=== PATIENT | male | born 1970 | race Caucasian/White ===

== ENCOUNTER 2017-08-24 20:26 | Inpatient (IN) | payer MEDICAID, OTHER, SELFPAY ==
[2017-08-24] MEDS: methylPREDNISolone INJ 125 MG/2 ML VIAL (J2930) IV (21:19)
[2017-08-24 21:23] LABS: BASO # 0.1 10^3/uL (0.0-0.2); BASO % 0.8 % (0.0-1.0); EOS # 0.2 10^3/uL (0.0-0.50); EOS % 1.3 % (0.0-3.0); HEMATOCRIT 60.2 % (42.0-52.0); HEMOGLOBIN 19.4 g/dl (13.5-17.5); IMMATURE GRANULOCYTE % 0.3 % (0-3.0); LYMPH % 22.4 % (24.0-44.0); MEAN CORPUSCULAR HEMOGLOBIN 30.4 pg (27.0-33.0); MEAN CORPUSCULAR HGB CONC 32.2 g/dl (32.0-36.5); MEAN CORPUSCULAR VOLUME 94.4 fl (80.0-96.0); MONO # 1.1 10^3/uL (0.0-0.8); MONO % 7.9 % (0.0-5.0); NEUTROPHILS # 8.9 10^3/uL (1.8-7.7); NEUTROPHILS % 67.3 % (36.0-66.0); PLATELET COUNT, AUTOMATED 247 10^3/uL (150-450); RED BLOOD COUNT 6.38 10^6/uL (4.30-6.10); RED CELL DISTRIBUTION WIDTH 15.6 % (11.5-14.5); WHITE BLOOD COUNT 13.3 10^3/uL (4.0-10.0)
[2017-08-24 21:26] LABS: SUSPECT SAMPLE POS FLAG
[2017-08-24] MEDS: IPRATROPIUM 0.5MG/ALBUTEROL 2.5MG INH SOL UD 3ML (DUONEB)(J7620) NEB ×3 (21:34→21:35)
[2017-08-24 21:49] LABS: ANION GAP 5 MEQ/L (8-16); BLOOD UREA NITROGEN 14 MG/DL (7-18); CALCIUM LEVEL 8.5 MG/DL (8.5-10.1); CARBON DIOXIDE LEVEL 32 MEQ/L (21-32); CHLORIDE LEVEL 99 MEQ/L (98-107); CPK CREATINE PHOSPHOKINASE 87 U/L (39-308); CREATININE FOR GFR 1.14 MG/DL (0.70-1.30); GLOMERULAR FILTRATION RATE > 60.0 (>60); GLUCOSE, FASTING 168 MG/DL (70-100); SODIUM LEVEL 136 MEQ/L (136-145); TROPONIN I 0.02 NG/ML (< 0.10)
[2017-08-24 21:54] LABS: ABG BASE EXCESS 2.2 (-2.0-2.0); ABG HCO3 26.8 MEQ/L (22.0-26.0); ABG O2 SATURATION 96.2 % (95.0-99.0); ABG PARTIAL PRESSURE CO2 41.3 mmHg (35.0-45.0); ABG STANDARD HCO3 26.4 MEQ/L (22.0-26.0); ABG TOTAL CO2 28.1 MEQ/L (22.0-29.0)
[2017-08-24 21:55] LABS: CK-MB VALUE MASS 3.6 NG/ML (<3.6); MB/CK RELATIVE INDEX 4.13 (< OR =4)
[2017-08-24 21:56] LABS: POTASSIUM SERUM 5.2 MEQ/L (3.5-5.1)
[2017-08-24 21:58] LABS: LACTIC ACID SEPSIS PROTOCOL 2.1 MMOL/L (0.4-2.0)
[2017-08-24] MEDS: ALBUTEROL SULFATE 2.5 MG/0.5 ML INH NEB SOLN NEB (22:46)
[2017-08-24] MEDS ORDERED: BISACODYL 5 MG TAB PO (23:30)
[2017-08-24] MEDS ORDERED: ONDANSETRON 4MG/2ML VIAL (J2405) IV (23:30)
[2017-08-24] MEDS ORDERED: ACETAMINOPHEN TAB 650MG DOSE (2X325MG) PO (23:30)
[2017-08-24] MEDS ORDERED: ALBUTEROL SULFATE 2.5 MG/0.5 ML INH NEB SOLN NEB (23:30)
[2017-08-25] MEDS: IPRATROPIUM 0.5MG/ALBUTEROL 2.5MG INH SOL UD 3ML (DUONEB)(J7620) NEB ×5 (02:00→20:00)
[2017-08-25 02:30] LABS: FREE T4 1.32 NG/DL (0.76-1.46)
[2017-08-25] MEDS: SYMBICORT 80/4.5MCG INHALER 6GM INH ×2 (08:01→19:43)
[2017-08-25] MEDS ORDERED: LOSARTAN 50 MG TAB PO (09:00)
[2017-08-25] MEDS: predniSONE 20 MG TAB PO (09:17)
[2017-08-25] MEDS: AZITHROMYCIN 250 MG TAB PO (09:17)
[2017-08-25] MEDS: METOPROLOL TART 50 MG TAB PO (09:17)
[2017-08-25] MEDS: SENOKOT S TAB PO ×2 (09:17→20:51)
[2017-08-25] MEDS: ENOXAPARIN 40 MG/0.4 ML SYRINGE (J1650) SC (09:18)
[2017-08-25] MEDS ORDERED: IPRATROPIUM 0.5MG/ALBUTEROL 2.5MG INH SOL UD 3ML (DUONEB)(J7620) NEB (10:15)
[2017-08-25] MEDS: methylPREDNISolone INJ 125 MG/2 ML VIAL (J2930) IV ×2 (12:17→17:20)
[2017-08-26] MEDS: IPRATROPIUM 0.5MG/ALBUTEROL 2.5MG INH SOL UD 3ML (DUONEB)(J7620) NEB ×7 (00:01→23:52)
[2017-08-26] MEDS: methylPREDNISolone INJ 125 MG/2 ML VIAL (J2930) IV ×5 (00:33→23:30)
[2017-08-26 06:06] LABS: HEMATOCRIT 53.7 % (42.0-52.0); MEAN CORPUSCULAR HGB CONC 31.1 g/dl (32.0-36.5); MEAN CORPUSCULAR VOLUME 96.6 fl (80.0-96.0); PLATELET COUNT, AUTOMATED 190 10^3/uL (150-450); RED BLOOD COUNT 5.56 10^6/uL (4.30-6.10); RED CELL DISTRIBUTION WIDTH 14.8 % (11.5-14.5); WHITE BLOOD COUNT 8.5 10^3/uL (4.0-10.0)
[2017-08-26 06:13] LABS: HEMOGLOBIN 16.7 g/dl (13.5-17.5)
[2017-08-26 06:24] LABS: ANION GAP 3 MEQ/L (8-16); BLOOD UREA NITROGEN 18 MG/DL (7-18); CALCIUM LEVEL 8.8 MG/DL (8.5-10.1); CARBON DIOXIDE LEVEL 36 MEQ/L (21-32); CHLORIDE LEVEL 102 MEQ/L (98-107); CREATININE FOR GFR 1.03 MG/DL (0.70-1.30); GLOMERULAR FILTRATION RATE > 60.0 (>60); GLUCOSE, FASTING 146 MG/DL (70-100); SODIUM LEVEL 141 MEQ/L (136-145)
[2017-08-26] MEDS: SYMBICORT 80/4.5MCG INHALER 6GM INH ×2 (07:47→20:09)
[2017-08-26] MEDS: SENOKOT S TAB PO ×2 (08:13→20:00)
[2017-08-26] MEDS: AZITHROMYCIN 250 MG TAB PO (08:13)
[2017-08-26] MEDS: ENOXAPARIN 40 MG/0.4 ML SYRINGE (J1650) SC (08:13)
[2017-08-26] MEDS: METOPROLOL TART 50 MG TAB PO (08:14)
[2017-08-26] MEDS: MAALOX 30 ML SUSP *UDC PO (21:34)
[2017-08-27] MEDS: IPRATROPIUM 0.5MG/ALBUTEROL 2.5MG INH SOL UD 3ML (DUONEB)(J7620) NEB ×5 (03:27→20:00)
[2017-08-27] MEDS: methylPREDNISolone INJ 125 MG/2 ML VIAL (J2930) IV (05:34)
[2017-08-27 05:58] LABS: HEMOGLOBIN 15.9 g/dl (13.5-17.5); MEAN CORPUSCULAR HEMOGLOBIN 30.3 pg (27.0-33.0); MEAN CORPUSCULAR HGB CONC 31.2 g/dl (32.0-36.5); MEAN CORPUSCULAR VOLUME 97.3 fl (80.0-96.0); PLATELET COUNT, AUTOMATED 178 10^3/uL (150-450); RED BLOOD COUNT 5.24 10^6/uL (4.30-6.10); RED CELL DISTRIBUTION WIDTH 14.6 % (11.5-14.5); WHITE BLOOD COUNT 11.1 10^3/uL (4.0-10.0)
[2017-08-27 06:17] LABS: ANION GAP 5 MEQ/L (8-16); BLOOD UREA NITROGEN 24 MG/DL (7-18); CALCIUM LEVEL 8.6 MG/DL (8.5-10.1); CARBON DIOXIDE LEVEL 35 MEQ/L (21-32); CHLORIDE LEVEL 105 MEQ/L (98-107); CREATININE FOR GFR 0.81 MG/DL (0.70-1.30); GLOMERULAR FILTRATION RATE > 60.0 (>60); GLUCOSE, FASTING 126 MG/DL (70-100); POTASSIUM SERUM 4.6 MEQ/L (3.5-5.1); SODIUM LEVEL 145 MEQ/L (136-145)
[2017-08-27] MEDS: AZITHROMYCIN 250 MG TAB PO (08:29)
[2017-08-27] MEDS: predniSONE 20 MG TAB PO (08:29)
[2017-08-27] MEDS: ENOXAPARIN 40 MG/0.4 ML SYRINGE (J1650) SC (08:30)
[2017-08-27] MEDS: METOPROLOL TART 50 MG TAB PO (08:30)
[2017-08-27] MEDS: SENOKOT S TAB PO ×2 (08:30→22:55)
[2017-08-27] MEDS: SYMBICORT 80/4.5MCG INHALER 6GM INH ×2 (08:44→20:09)
[2017-08-27] MEDS: MAALOX 30 ML SUSP *UDC PO (22:55)
[2017-08-28] MEDS: IPRATROPIUM 0.5MG/ALBUTEROL 2.5MG INH SOL UD 3ML (DUONEB)(J7620) NEB ×4 (03:50→20:00)
[2017-08-28 06:48] LABS: HEMATOCRIT 50.4 % (42.0-52.0); HEMOGLOBIN 15.2 g/dl (13.5-17.5); MEAN CORPUSCULAR HEMOGLOBIN 29.6 pg (27.0-33.0); MEAN CORPUSCULAR HGB CONC 30.2 g/dl (32.0-36.5); MEAN CORPUSCULAR VOLUME 98.1 fl (80.0-96.0); PLATELET COUNT, AUTOMATED 154 10^3/uL (150-450); RED BLOOD COUNT 5.14 10^6/uL (4.30-6.10); RED CELL DISTRIBUTION WIDTH 14.3 % (11.5-14.5); WHITE BLOOD COUNT 10.8 10^3/uL (4.0-10.0)
[2017-08-28 07:04] LABS: ANION GAP 1 MEQ/L (8-16); BLOOD UREA NITROGEN 23 MG/DL (7-18); CALCIUM LEVEL 8.3 MG/DL (8.5-10.1); CARBON DIOXIDE LEVEL 36 MEQ/L (21-32); CHLORIDE LEVEL 103 MEQ/L (98-107); CREATININE FOR GFR 0.74 MG/DL (0.70-1.30); GLOMERULAR FILTRATION RATE > 60.0 (>60); GLUCOSE, FASTING 85 MG/DL (70-100); POTASSIUM SERUM 4.6 MEQ/L (3.5-5.1); SODIUM LEVEL 140 MEQ/L (136-145)
[2017-08-28] MEDS: AZITHROMYCIN 250 MG TAB PO (08:01)
[2017-08-28] MEDS: predniSONE 20 MG TAB PO (08:01)
[2017-08-28] MEDS: METOPROLOL TART 50 MG TAB PO (08:02)
[2017-08-28] MEDS: SENOKOT S TAB PO ×2 (08:02→21:10)
[2017-08-28] MEDS: ENOXAPARIN 40 MG/0.4 ML SYRINGE (J1650) SC (08:03)
[2017-08-28] MEDS: SYMBICORT 80/4.5MCG INHALER 6GM INH ×2 (09:12→20:26)
[2017-08-28] MEDS: MAALOX 30 ML SUSP *UDC PO (21:11)
[2017-08-29] MEDS: IPRATROPIUM 0.5MG/ALBUTEROL 2.5MG INH SOL UD 3ML (DUONEB)(J7620) NEB ×2 (02:35→07:53)
[2017-08-29 07:49] LABS: HEMATOCRIT 52.7 % (42.0-52.0); HEMOGLOBIN 16.1 g/dl (13.5-17.5); MEAN CORPUSCULAR HEMOGLOBIN 30.2 pg (27.0-33.0); MEAN CORPUSCULAR HGB CONC 30.6 g/dl (32.0-36.5); MEAN CORPUSCULAR VOLUME 98.9 fl (80.0-96.0); PLATELET COUNT, AUTOMATED 148 10^3/uL (150-450); RED BLOOD COUNT 5.33 10^6/uL (4.30-6.10); RED CELL DISTRIBUTION WIDTH 14.3 % (11.5-14.5); WHITE BLOOD COUNT 10.1 10^3/uL (4.0-10.0)
[2017-08-29] MEDS: SYMBICORT 80/4.5MCG INHALER 6GM INH ×2 (07:52→20:54)
[2017-08-29 08:21] LABS: ANION GAP 0 MEQ/L (8-16); BLOOD UREA NITROGEN 17 MG/DL (7-18); CALCIUM LEVEL 8.2 MG/DL (8.5-10.1); CARBON DIOXIDE LEVEL 37 MEQ/L (21-32); CHLORIDE LEVEL 101 MEQ/L (98-107); CREATININE FOR GFR 0.61 MG/DL (0.70-1.30); GLOMERULAR FILTRATION RATE > 60.0 (>60); GLUCOSE, FASTING 86 MG/DL (70-100); POTASSIUM SERUM 4.7 MEQ/L (3.5-5.1); SODIUM LEVEL 138 MEQ/L (136-145)
[2017-08-29] MEDS: METOPROLOL TART 50 MG TAB PO (09:09)
[2017-08-29] MEDS: predniSONE 50 MG TAB PO (09:09)
[2017-08-29] MEDS: SENOKOT S TAB PO ×2 (09:09→21:24)
[2017-08-29] MEDS: ENOXAPARIN 40 MG/0.4 ML SYRINGE (J1650) SC (09:09)
[2017-08-29] MEDS ORDERED: IPRATROPIUM 0.5MG/ALBUTEROL 2.5MG INH SOL UD 3ML (DUONEB)(J7620) NEB (11:30)
[2017-08-29] MEDS: TIOTROPIUM INHALER/CAPSULE (SPIRIVA) INH (11:34)
[2017-08-30 06:55] LABS: HEMATOCRIT 52.2 % (42.0-52.0); HEMOGLOBIN 16.3 g/dl (13.5-17.5); MEAN CORPUSCULAR HEMOGLOBIN 30.4 pg (27.0-33.0); MEAN CORPUSCULAR HGB CONC 31.2 g/dl (32.0-36.5); MEAN CORPUSCULAR VOLUME 97.2 fl (80.0-96.0); PLATELET COUNT, AUTOMATED 145 10^3/uL (150-450); RED BLOOD COUNT 5.37 10^6/uL (4.30-6.10); RED CELL DISTRIBUTION WIDTH 13.8 % (11.5-14.5); WHITE BLOOD COUNT 9.6 10^3/uL (4.0-10.0)
[2017-08-30 07:12] LABS: ANION GAP 4 MEQ/L (8-16); BLOOD UREA NITROGEN 20 MG/DL (7-18); CALCIUM LEVEL 8.4 MG/DL (8.5-10.1); CARBON DIOXIDE LEVEL 35 MEQ/L (21-32); CHLORIDE LEVEL 100 MEQ/L (98-107); CREATININE FOR GFR 0.75 MG/DL (0.70-1.30); GLOMERULAR FILTRATION RATE > 60.0 (>60); GLUCOSE, FASTING 104 MG/DL (70-100); POTASSIUM SERUM 4.2 MEQ/L (3.5-5.1); SODIUM LEVEL 139 MEQ/L (136-145)
[2017-08-30] MEDS: SYMBICORT 80/4.5MCG INHALER 6GM INH ×2 (07:49→20:35)
[2017-08-30] MEDS: TIOTROPIUM INHALER/CAPSULE (SPIRIVA) INH (07:49)
[2017-08-30] MEDS: ENOXAPARIN 40 MG/0.4 ML SYRINGE (J1650) SC (09:03)
[2017-08-30] MEDS: predniSONE 20 MG TAB PO (09:04)
[2017-08-30] MEDS: SENOKOT S TAB PO ×2 (09:04→20:30)
[2017-08-30] MEDS: METOPROLOL TART 50 MG TAB PO (09:04)
[2017-08-31 08:01] LABS: HEMATOCRIT 51.8 % (42.0-52.0); HEMOGLOBIN 16.6 g/dl (13.5-17.5); MEAN CORPUSCULAR HEMOGLOBIN 30.6 pg (27.0-33.0); MEAN CORPUSCULAR VOLUME 95.4 fl (80.0-96.0); PLATELET COUNT, AUTOMATED 164 10^3/uL (150-450); RED BLOOD COUNT 5.43 10^6/uL (4.30-6.10); RED CELL DISTRIBUTION WIDTH 13.8 % (11.5-14.5); WHITE BLOOD COUNT 9.8 10^3/uL (4.0-10.0)
[2017-08-31 08:27] LABS: ANION GAP 4 MEQ/L (8-16); BLOOD UREA NITROGEN 17 MG/DL (7-18); CALCIUM LEVEL 8.5 MG/DL (8.5-10.1); CARBON DIOXIDE LEVEL 34 MEQ/L (21-32); CHLORIDE LEVEL 102 MEQ/L (98-107); CREATININE FOR GFR 0.81 MG/DL (0.70-1.30); GLOMERULAR FILTRATION RATE > 60.0 (>60); GLUCOSE, FASTING 109 MG/DL (70-100); POTASSIUM SERUM 3.8 MEQ/L (3.5-5.1); SODIUM LEVEL 140 MEQ/L (136-145)
[2017-08-31] MEDS: SENOKOT S TAB PO (08:41)
[2017-08-31] MEDS: predniSONE 20 MG TAB PO (08:41)
[2017-08-31] MEDS: METOPROLOL TART 50 MG TAB PO (08:42)
[2017-08-31] MEDS: ENOXAPARIN 40 MG/0.4 ML SYRINGE (J1650) SC (08:42)
[2017-08-31] MEDS: TIOTROPIUM INHALER/CAPSULE (SPIRIVA) INH (08:51)
[2017-08-31] MEDS: SYMBICORT 80/4.5MCG INHALER 6GM INH (08:51)
== END 2017-08-31 15:00 | disposition home or self-care (01) | DRG 140 ==
LOC: M MSPAV 08-25 00:06 → M ED 20:26 → M PED 08-29 23:10 → M ED INP 23:18
DX: J44.1 Chronic obstructive pulmonary disease with (acute) exacerbation (principal); J96.01 Acute respiratory failure with hypoxia; D75.1 Secondary polycythemia; I10 Essential (primary) hypertension; F17.210 Nicotine dependence, cigarettes, uncomplicated; E02 Subclinical iodine-deficiency hypothyroidism; R91.8 Other nonspecific abnormal finding of lung field; Z91.040 Latex allergy status; Z79.899 Other long term (current) drug therapy

== ENCOUNTER 2017-11-06 01:57 | Inpatient (IN) | payer MEDICAID ==
[2017-11-06 02:26] LABS: HEMATOCRIT 49.5 % (42.0-52.0); HEMOGLOBIN 15.7 g/dl (13.5-17.5); MEAN CORPUSCULAR HEMOGLOBIN 28.8 pg (27.0-33.0); MEAN CORPUSCULAR HGB CONC 31.7 g/dl (32.0-36.5); MEAN CORPUSCULAR VOLUME 90.8 fl (80.0-96.0); PLATELET COUNT, AUTOMATED 220 10^3/uL (150-450); RED BLOOD COUNT 5.45 10^6/uL (4.30-6.10); RED CELL DISTRIBUTION WIDTH 12.7 % (11.5-14.5); WHITE BLOOD COUNT 9.4 10^3/uL (4.0-10.0)
[2017-11-06] MEDS: dexameTHASONE 20 MG/5 ML VIAL (J1100) IV (02:27)
[2017-11-06 02:29] LABS: ADD MANUAL DIFFER YES; DIFF SLIDE NUMBER 82; POSITIVE MORPH POS FLAG
[2017-11-06] MEDS: ALBUTEROL SULFATE 2.5 MG/0.5 ML INH NEB SOLN NEB (02:41)
[2017-11-06 02:43] LABS: ATYPICAL LYMPH 1 % (0-5); BANDS 2 % (< 11); BASOPHILS 1 % (0-4); LYMPHOCYTES 26 % (16-52); METAMYELOCYTES 4 % (0-0); MONOCYTES 19 % (0-8); NEUTROPHILS 47 % (35-75); PLATELET ESTIMATE NORMAL (NORMAL)
[2017-11-06 02:47] LABS: ABG HCO3 34.1 MEQ/L (22.0-26.0); ABG O2 SATURATION 96.3 % (95.0-99.0); ABG PARTIAL PRESSURE O2 98.1 mmHg (75.0-100.0); ABG STANDARD HCO3 26.2 MEQ/L (22.0-26.0)
[2017-11-06 02:48] LABS: ABG PARTIAL PRESSURE CO2 93.5 mmHg (35.0-45.0)
[2017-11-06 03:00] LABS: ANION GAP 9 MEQ/L (8-16); BLOOD UREA NITROGEN 32 MG/DL (7-18); CALCIUM LEVEL 9.9 MG/DL (8.5-10.1); CARBON DIOXIDE LEVEL 34 MEQ/L (21-32); CHLORIDE LEVEL 95 MEQ/L (98-107); CK-MB VALUE MASS 1.1 NG/ML (<3.6); CPK CREATINE PHOSPHOKINASE 31 U/L (39-308); CREATININE FOR GFR 1.47 MG/DL (0.70-1.30); GLOMERULAR FILTRATION RATE 54.9 (>60); GLUCOSE, FASTING 178 MG/DL (70-100); MB/CK RELATIVE INDEX 3.54 (< OR =4); POTASSIUM SERUM 4.8 MEQ/L (3.5-5.1); SODIUM LEVEL 138 MEQ/L (136-145); TROPONIN I < 0.02 NG/ML (< 0.10)
[2017-11-06 03:59] LABS: ABG HCO3 31.4 MEQ/L (22.0-26.0); ABG O2 SATURATION 97.2 % (95.0-99.0); ABG PARTIAL PRESSURE O2 105.4 mmHg (75.0-100.0); ABG STANDARD HCO3 25.3 MEQ/L (22.0-26.0); ABG TOTAL CO2 33.8 MEQ/L (22.0-29.0)
[2017-11-06 04:03] LABS: ABG PARTIAL PRESSURE CO2 77.9 mmHg (35.0-45.0); ABG pH (ARTERIAL) 7.223 UNITS (7.350-7.450)
[2017-11-06 05:06] LABS: ABG BASE EXCESS 3.5 (-2.0-2.0); ABG HCO3 34.6 MEQ/L (22.0-26.0); ABG O2 SATURATION 96.3 % (95.0-99.0); ABG PARTIAL PRESSURE O2 95.1 mmHg (75.0-100.0); ABG STANDARD HCO3 27.5 MEQ/L (22.0-26.0); ABG TOTAL CO2 37.2 MEQ/L (22.0-29.0)
[2017-11-06 05:08] LABS: ABG pH (ARTERIAL) 7.225 UNITS (7.350-7.450)
[2017-11-06 05:09] LABS: ABG PARTIAL PRESSURE CO2 85.4 mmHg (35.0-45.0)
[2017-11-06] MEDS ORDERED: ALBUTEROL SULFATE 2.5 MG/0.5 ML INH NEB SOLN INH (05:30)
[2017-11-06] MEDS ORDERED: ALBUTEROL 90 MCG/ACT 8GM HFA INHALER INH (05:30)
[2017-11-06] MEDS: AZITHROMYCIN INJ 500 MG, VIAL MATE ADAPTER 1 EACH in D5W 250 ML IV (05:59)
[2017-11-06] MEDS: HEPARIN SOD (PORCINE) 5000 UNITS/ML VIAL SQ ×3 (07:33→21:01)
[2017-11-06] MEDS: SYMBICORT 80/4.5MCG INHALER 6GM INH ×2 (08:27→19:37)
[2017-11-06] MEDS: TIOTROPIUM INHALER/CAPSULE (SPIRIVA) INH (08:27)
[2017-11-06] MEDS ORDERED: LOSARTAN 50 MG TAB PO (09:00)
[2017-11-06] MEDS: cefTRIAXone SOD 1 GM in D5W MINI-BAG PLUS 50 ML IV (10:30)
[2017-11-06] MEDS: methylPREDNISolone INJ 125 MG/2 ML VIAL (J2930) IV ×2 (10:31→19:27)
[2017-11-06 10:37] LABS: ABG BASE EXCESS 4.7 (-2.0-2.0); ABG HCO3 34.9 MEQ/L (22.0-26.0); ABG O2 SATURATION 94.4 % (95.0-99.0); ABG PARTIAL PRESSURE O2 73.7 mmHg (75.0-100.0); ABG STANDARD HCO3 28.6 MEQ/L (22.0-26.0); ABG TOTAL CO2 37.4 MEQ/L (22.0-29.0)
[2017-11-06 10:45] LABS: ABG PARTIAL PRESSURE CO2 79.6 mmHg (35.0-45.0)
[2017-11-06] MEDS: IPRATROPIUM 0.5MG/ALBUTEROL 2.5MG INH SOL UD 3ML (DUONEB)(J7620) NEB ×3 (11:19→19:37)
[2017-11-06 16:01] LABS: ABG HCO3 32.3 MEQ/L (22.0-26.0); ABG O2 SATURATION 93.5 % (95.0-99.0); ABG PARTIAL PRESSURE O2 69.6 mmHg (75.0-100.0); ABG STANDARD HCO3 27.9 MEQ/L (22.0-26.0); ABG TOTAL CO2 34.3 MEQ/L (22.0-29.0); ABG pH (ARTERIAL) 7.317 UNITS (7.350-7.450)
[2017-11-06 16:03] LABS: ABG PARTIAL PRESSURE CO2 64.6 mmHg (35.0-45.0)
[2017-11-06 18:32] LABS: CPK CREATINE PHOSPHOKINASE 16 U/L (39-308); TROPONIN I < 0.02 NG/ML (< 0.10)
[2017-11-06 18:33] LABS: CK-MB VALUE MASS < 1.0 NG/ML (<3.6); MB/CK RELATIVE INDEX 6.25 (< OR =4)
[2017-11-06] MEDS: NS 1,000 ML IV (19:26)
[2017-11-07] MEDS: IPRATROPIUM 0.5MG/ALBUTEROL 2.5MG INH SOL UD 3ML (DUONEB)(J7620) NEB ×7 (00:20→23:10)
[2017-11-07] MEDS: methylPREDNISolone INJ 125 MG/2 ML VIAL (J2930) IV ×3 (01:09→18:32)
[2017-11-07] MEDS: HEPARIN SOD (PORCINE) 5000 UNITS/ML VIAL SQ ×3 (05:09→21:26)
[2017-11-07] MEDS: AZITHROMYCIN INJ 500 MG, VIAL MATE ADAPTER 1 EACH in D5W 250 ML IV (05:09)
[2017-11-07] MEDS: NS 1,000 ML IV (07:30)
[2017-11-07] MEDS: TIOTROPIUM INHALER/CAPSULE (SPIRIVA) INH (08:01)
[2017-11-07] MEDS: SYMBICORT 80/4.5MCG INHALER 6GM INH ×2 (08:01→22:27)
[2017-11-07 08:05] LABS: HEMATOCRIT 39.3 % (42.0-52.0); MEAN CORPUSCULAR HEMOGLOBIN 29.2 pg (27.0-33.0); MEAN CORPUSCULAR HGB CONC 32.6 g/dl (32.0-36.5); MEAN CORPUSCULAR VOLUME 89.5 fl (80.0-96.0); PLATELET COUNT, AUTOMATED 168 10^3/uL (150-450); RED BLOOD COUNT 4.39 10^6/uL (4.30-6.10); RED CELL DISTRIBUTION WIDTH 12.3 % (11.5-14.5); WHITE BLOOD COUNT 8.1 10^3/uL (4.0-10.0)
[2017-11-07 08:19] LABS: ADD MANUAL DIFFER YES; DIFF SLIDE NUMBER 97; HEMOGLOBIN 12.8 g/dl (13.5-17.5); POSITIVE MORPH POS FLAG
[2017-11-07 08:27] LABS: ALBUMIN 2.4 GM/DL (3.2-5.2); ALKALINE PHOSPHATASE 59 U/L (45-117); ALT/SGPT 13 U/L (12-78); ANION GAP 5 MEQ/L (8-16); AST/SGOT 6 U/L (7-37); BILIRUBIN,TOTAL 0.2 MG/DL (0.2-1.0); BLOOD UREA NITROGEN 27 MG/DL (7-18); CALCIUM LEVEL 9.2 MG/DL (8.5-10.1); CARBON DIOXIDE LEVEL 36 MEQ/L (21-32); CHLORIDE LEVEL 99 MEQ/L (98-107); CREATININE FOR GFR 0.71 MG/DL (0.70-1.30); GLUCOSE, FASTING 149 MG/DL (70-100); MAGNESIUM LEVEL 2.3 MG/DL (1.8-2.4); POTASSIUM SERUM 3.9 MEQ/L (3.5-5.1); SODIUM LEVEL 140 MEQ/L (136-145); TOTAL PROTEIN 6.4 GM/DL (6.4-8.2)
[2017-11-07 08:33] LABS: GLOMERULAR FILTRATION RATE > 60.0 (>60)
[2017-11-07 08:35] LABS: ABG DEVICE BIPAP; ABG FIO2 50; ABG HCO3 34.6 MEQ/L (22.0-26.0); ABG PARTIAL PRESSURE O2 74.2 mmHg (75.0-100.0); ABG STANDARD HCO3 30.8 MEQ/L (22.0-26.0); ABG TOTAL CO2 36.6 MEQ/L (22.0-29.0)
[2017-11-07 08:36] LABS: ABG PARTIAL PRESSURE CO2 62.7 mmHg (35.0-45.0)
[2017-11-07 08:42] LABS: ATYPICAL LYMPH 1 % (0-5); BANDS 1 % (< 11); LYMPHOCYTES 15 % (16-52); METAMYELOCYTES 2 % (0-0); MONOCYTES 14 % (0-8); NEUTROPHILS 67 % (35-75); PLATELET ESTIMATE NORMAL (NORMAL)
[2017-11-07] MEDS: cefTRIAXone SOD 1 GM in D5W MINI-BAG PLUS 50 ML IV (09:33)
[2017-11-07] MEDS: LOSARTAN 50 MG TAB PO (09:33)
[2017-11-07] MEDS ORDERED: NS 1,000 ML IV (10:30)
[2017-11-08] MEDS: IPRATROPIUM 0.5MG/ALBUTEROL 2.5MG INH SOL UD 3ML (DUONEB)(J7620) NEB ×7 (01:12→22:59)
[2017-11-08] MEDS: methylPREDNISolone INJ 125 MG/2 ML VIAL (J2930) IV ×3 (02:17→18:05)
[2017-11-08] MEDS: AZITHROMYCIN INJ 500 MG, VIAL MATE ADAPTER 1 EACH in D5W 250 ML IV (05:28)
[2017-11-08] MEDS: HEPARIN SOD (PORCINE) 5000 UNITS/ML VIAL SQ ×3 (05:28→21:51)
[2017-11-08 06:22] LABS: BASO # 0.1 10^3/uL (0.0-0.2); BASO % 0.7 % (0.0-1.0); HEMOGLOBIN 12.3 g/dl (13.5-17.5); IMMATURE GRANULOCYTE % 2.6 % (0-3.0); LYMPH % 11.5 % (24.0-44.0); MEAN CORPUSCULAR HGB CONC 32.4 g/dl (32.0-36.5); MEAN CORPUSCULAR VOLUME 89.6 fl (80.0-96.0); MONO # 0.9 10^3/uL (0.0-0.8); MONO % 9.9 % (0.0-5.0); NEUTROPHILS # 6.6 10^3/uL (1.8-7.7); NEUTROPHILS % 75.3 % (36.0-66.0); PLATELET COUNT, AUTOMATED 139 10^3/uL (150-450); RED BLOOD COUNT 4.24 10^6/uL (4.30-6.10); RED CELL DISTRIBUTION WIDTH 12.5 % (11.5-14.5); WHITE BLOOD COUNT 8.7 10^3/uL (4.0-10.0)
[2017-11-08 06:44] LABS: ALBUMIN 2.3 GM/DL (3.2-5.2); ALBUMIN/GLOBULIN RATIO 0.62 (1.00-1.93); ALKALINE PHOSPHATASE 57 U/L (45-117); ALT/SGPT 14 U/L (12-78); ANION GAP 5 MEQ/L (8-16); AST/SGOT 10 U/L (7-37); BILIRUBIN,TOTAL 0.2 MG/DL (0.2-1.0); BLOOD UREA NITROGEN 19 MG/DL (7-18); CALCIUM LEVEL 9.2 MG/DL (8.5-10.1); CARBON DIOXIDE LEVEL 36 MEQ/L (21-32); CHLORIDE LEVEL 98 MEQ/L (98-107); CREATININE FOR GFR 0.61 MG/DL (0.70-1.30); GLOMERULAR FILTRATION RATE > 60.0 (>60); GLUCOSE, FASTING 195 MG/DL (70-100); MAGNESIUM LEVEL 2.4 MG/DL (1.8-2.4); SODIUM LEVEL 139 MEQ/L (136-145)
[2017-11-08] MEDS: TIOTROPIUM INHALER/CAPSULE (SPIRIVA) INH (07:50)
[2017-11-08] MEDS: SYMBICORT 80/4.5MCG INHALER 6GM INH ×2 (07:51→19:10)
[2017-11-08] MEDS ORDERED: LevoFLOXacin IV 500 MG in APPROPRIATE DILUENT 1 EA IV (08:00)
[2017-11-08 08:08] LABS: ABG HCO3 30.6 MEQ/L (22.0-26.0); ABG O2 SATURATION 93.2 % (95.0-99.0); ABG PARTIAL PRESSURE CO2 54.2 mmHg (35.0-45.0); ABG PARTIAL PRESSURE O2 68.2 mmHg (75.0-100.0); ABG TOTAL CO2 32.3 MEQ/L (22.0-29.0)
[2017-11-08] MEDS: LevoFLOXacin 500 MG TABLET PO (09:07)
[2017-11-08] MEDS: LOSARTAN 50 MG TAB PO (09:08)
[2017-11-08] MEDS: SODIUM CHLORIDE NASAL 0.65% SPRAY BTL (OCEAN) (09:13)
[2017-11-08] MEDS: METOPROLOL TART 12.5 MG PER 1/2 TAB PO ×2 (14:05→21:51)
[2017-11-09] MEDS: methylPREDNISolone INJ 125 MG/2 ML VIAL (J2930) IV ×2 (02:57→09:13)
[2017-11-09] MEDS: IPRATROPIUM 0.5MG/ALBUTEROL 2.5MG INH SOL UD 3ML (DUONEB)(J7620) NEB ×6 (03:56→23:50)
[2017-11-09 04:27] LABS: MEAN CORPUSCULAR HEMOGLOBIN 28.9 pg (27.0-33.0); MEAN CORPUSCULAR HGB CONC 32.5 g/dl (32.0-36.5); MEAN CORPUSCULAR VOLUME 88.9 fl (80.0-96.0); PLATELET COUNT, AUTOMATED 154 10^3/uL (150-450); RED CELL DISTRIBUTION WIDTH 12.3 % (11.5-14.5); WHITE BLOOD COUNT 11.8 10^3/uL (4.0-10.0)
[2017-11-09 04:36] LABS: ADD MANUAL DIFFER YES; DIFF SLIDE NUMBER 41; POSITIVE MORPH POS FLAG
[2017-11-09 04:54] LABS: ATYPICAL LYMPH 1 % (0-5); BANDS 1 % (< 11); LYMPHOCYTES 14 % (16-52); METAMYELOCYTES 4 % (0-0); MONOCYTES 10 % (0-8); MYELOCYTES 1 % (0-0); NEUTROPHILS 68 % (35-75); PROMYELOCYTES 1 % (0-0)
[2017-11-09 04:55] LABS: PLATELET ESTIMATE NORMAL (NORMAL)
[2017-11-09 04:59] LABS: ALBUMIN 2.4 GM/DL (3.2-5.2); ALBUMIN/GLOBULIN RATIO 0.65 (1.00-1.93); ALKALINE PHOSPHATASE 58 U/L (45-117); ALT/SGPT 16 U/L (12-78); ANION GAP 5 MEQ/L (8-16); AST/SGOT 16 U/L (7-37); BILIRUBIN,TOTAL 0.2 MG/DL (0.2-1.0); BLOOD UREA NITROGEN 19 MG/DL (7-18); CALCIUM LEVEL 9.5 MG/DL (8.5-10.1); CARBON DIOXIDE LEVEL 40 MEQ/L (21-32); CHLORIDE LEVEL 96 MEQ/L (98-107); GLOMERULAR FILTRATION RATE > 60.0 (>60); GLUCOSE, FASTING 113 MG/DL (70-100); MAGNESIUM LEVEL 2.4 MG/DL (1.8-2.4); POTASSIUM SERUM 4.7 MEQ/L (3.5-5.1); SODIUM LEVEL 141 MEQ/L (136-145); TOTAL PROTEIN 6.1 GM/DL (6.4-8.2)
[2017-11-09] MEDS: METOPROLOL TART 12.5 MG PER 1/2 TAB PO (06:00)
[2017-11-09] MEDS: LevoFLOXacin 500 MG TABLET PO (06:09)
[2017-11-09] MEDS: HEPARIN SOD (PORCINE) 5000 UNITS/ML VIAL SQ ×3 (06:09→21:22)
[2017-11-09] MEDS: SYMBICORT 80/4.5MCG INHALER 6GM INH ×2 (07:58→19:14)
[2017-11-09] MEDS: TIOTROPIUM INHALER/CAPSULE (SPIRIVA) INH (07:58)
[2017-11-09 08:15] LABS: ABG BASE EXCESS 10.3 (-2.0-2.0); ABG HCO3 35.9 MEQ/L (22.0-26.0); ABG O2 SATURATION 88.7 % (95.0-99.0); ABG PARTIAL PRESSURE CO2 51.9 mmHg (35.0-45.0); ABG PARTIAL PRESSURE O2 54.5 mmHg (75.0-100.0); ABG STANDARD HCO3 33.8 MEQ/L (22.0-26.0); ABG TOTAL CO2 37.5 MEQ/L (22.0-29.0); ABG pH (ARTERIAL) 7.458 UNITS (7.350-7.450)
[2017-11-09] MEDS: LOSARTAN 50 MG TAB PO (09:14)
[2017-11-09] MEDS ORDERED: ALBUTEROL SULFATE 2.5 MG/0.5 ML INH NEB SOLN NEB (09:15)
[2017-11-09] MEDS: METOPROLOL TART 25 MG TABLET PO ×2 (17:32→23:44)
[2017-11-10] MEDS: IPRATROPIUM 0.5MG/ALBUTEROL 2.5MG INH SOL UD 3ML (DUONEB)(J7620) NEB ×6 (03:26→23:52)
[2017-11-10 04:26] LABS: HEMOGLOBIN 12.3 g/dl (13.5-17.5); MEAN CORPUSCULAR HEMOGLOBIN 28.9 pg (27.0-33.0); MEAN CORPUSCULAR HGB CONC 32.4 g/dl (32.0-36.5); MEAN CORPUSCULAR VOLUME 89.2 fl (80.0-96.0); PLATELET COUNT, AUTOMATED 132 10^3/uL (150-450); RED BLOOD COUNT 4.26 10^6/uL (4.30-6.10); RED CELL DISTRIBUTION WIDTH 12.2 % (11.5-14.5)
[2017-11-10 04:32] LABS: POS COUNT POS FLAG; POSITIVE MORPH POS FLAG
[2017-11-10 04:33] LABS: ADD MANUAL DIFFER YES; DIFF SLIDE NUMBER 16
[2017-11-10 05:01] LABS: ALBUMIN 2.3 GM/DL (3.2-5.2); ALBUMIN/GLOBULIN RATIO 0.72 (1.00-1.93); ALKALINE PHOSPHATASE 65 U/L (45-117); ALT/SGPT 14 U/L (12-78); ANION GAP 0 MEQ/L (8-16); AST/SGOT 13 U/L (7-37); BILIRUBIN,TOTAL 0.2 MG/DL (0.2-1.0); BLOOD UREA NITROGEN 25 MG/DL (7-18); CALCIUM LEVEL 8.6 MG/DL (8.5-10.1); CARBON DIOXIDE LEVEL 43 MEQ/L (21-32); CHLORIDE LEVEL 99 MEQ/L (98-107); CREATININE FOR GFR 0.61 MG/DL (0.70-1.30); GLOMERULAR FILTRATION RATE > 60.0 (>60); GLUCOSE, FASTING 92 MG/DL (70-100); MAGNESIUM LEVEL 2.2 MG/DL (1.8-2.4); POTASSIUM SERUM 4.1 MEQ/L (3.5-5.1); SODIUM LEVEL 142 MEQ/L (136-145); TOTAL PROTEIN 5.5 GM/DL (6.4-8.2)
[2017-11-10] MEDS: METOPROLOL TART 25 MG TABLET PO ×4 (05:11→23:30)
[2017-11-10 05:13] LABS: ATYPICAL LYMPH 3 % (0-5); LYMPHOCYTES 34 % (16-52); METAMYELOCYTES 1 % (0-0); MONOCYTES 4 % (0-8); MYELOCYTES 1 % (0-0); NEUTROPHILS 57 % (35-75); PLATELET ESTIMATE DECREASED (NORMAL)
[2017-11-10] MEDS: HEPARIN SOD (PORCINE) 5000 UNITS/ML VIAL SQ ×3 (05:14→21:08)
[2017-11-10] MEDS: LevoFLOXacin 500 MG TABLET PO (05:14)
[2017-11-10] MEDS: SYMBICORT 80/4.5MCG INHALER 6GM INH ×2 (07:13→20:46)
[2017-11-10] MEDS: TIOTROPIUM INHALER/CAPSULE (SPIRIVA) INH (07:13)
[2017-11-10] MEDS: LOSARTAN 50 MG TAB PO (09:00)
[2017-11-10] MEDS: predniSONE 20 MG TAB PO (09:01)
[2017-11-10] MEDS ORDERED: SLF 3 ML SYR IV (13:00)
[2017-11-10] MEDS: SLF 3 ML SYR IV ×2 (14:19→21:08)
[2017-11-11] MEDS: IPRATROPIUM 0.5MG/ALBUTEROL 2.5MG INH SOL UD 3ML (DUONEB)(J7620) NEB ×6 (03:40→23:43)
[2017-11-11 05:22] LABS: HEMATOCRIT 37.4 % (42.0-52.0); MEAN CORPUSCULAR HEMOGLOBIN 28.6 pg (27.0-33.0); MEAN CORPUSCULAR HGB CONC 32.1 g/dl (32.0-36.5); MEAN CORPUSCULAR VOLUME 89.3 fl (80.0-96.0); PLATELET COUNT, AUTOMATED 135 10^3/uL (150-450); RED BLOOD COUNT 4.19 10^6/uL (4.30-6.10); RED CELL DISTRIBUTION WIDTH 12.2 % (11.5-14.5); WHITE BLOOD COUNT 12.7 10^3/uL (4.0-10.0)
[2017-11-11 05:30] LABS: ADD MANUAL DIFFER YES; DIFF SLIDE NUMBER 16; POS COUNT POS FLAG; POSITIVE MORPH POS FLAG
[2017-11-11] MEDS: METOPROLOL TART 25 MG TABLET PO ×2 (05:43→11:42)
[2017-11-11 05:48] LABS: ALBUMIN 2.3 GM/DL (3.2-5.2); ALBUMIN/GLOBULIN RATIO 0.79 (1.00-1.93); ALKALINE PHOSPHATASE 64 U/L (45-117); ALT/SGPT 12 U/L (12-78); ANION GAP 2 MEQ/L (8-16); AST/SGOT 11 U/L (7-37); BILIRUBIN,TOTAL 0.3 MG/DL (0.2-1.0); BLOOD UREA NITROGEN 19 MG/DL (7-18); CALCIUM LEVEL 8.3 MG/DL (8.5-10.1); CARBON DIOXIDE LEVEL 41 MEQ/L (21-32); CHLORIDE LEVEL 99 MEQ/L (98-107); CREATININE FOR GFR 0.57 MG/DL (0.70-1.30); GLOMERULAR FILTRATION RATE > 60.0 (>60); GLUCOSE, FASTING 87 MG/DL (70-100); MAGNESIUM LEVEL 2.1 MG/DL (1.8-2.4); SODIUM LEVEL 142 MEQ/L (136-145); TOTAL PROTEIN 5.2 GM/DL (6.4-8.2)
[2017-11-11] MEDS: LevoFLOXacin 500 MG TABLET PO (05:49)
[2017-11-11] MEDS: SLF 3 ML SYR IV ×3 (05:50→21:54)
[2017-11-11] MEDS: HEPARIN SOD (PORCINE) 5000 UNITS/ML VIAL SQ ×3 (05:50→21:54)
[2017-11-11 06:06] LABS: ATYPICAL LYMPH 3 % (0-5); LYMPHOCYTES 27 % (16-52); MONOCYTES 2 % (0-8); NEUTROPHILS 68 % (35-75); PLATELET ESTIMATE NORMAL (NORMAL)
[2017-11-11] MEDS: TIOTROPIUM INHALER/CAPSULE (SPIRIVA) INH (07:35)
[2017-11-11] MEDS: SYMBICORT 80/4.5MCG INHALER 6GM INH ×2 (07:36→20:30)
[2017-11-11] MEDS: LOSARTAN 50 MG TAB PO (08:49)
[2017-11-11] MEDS: predniSONE 20 MG TAB PO (08:49)
[2017-11-11] MEDS ORDERED: ISOVUE-370 76% 100ML VIAL (Q9967) As Ordered (15:44)
[2017-11-11] MEDS: METOPROLOL TART 50 MG TAB PO (18:00)
[2017-11-12] MEDS: IPRATROPIUM 0.5MG/ALBUTEROL 2.5MG INH SOL UD 3ML (DUONEB)(J7620) NEB ×3 (03:00→12:28)
[2017-11-12] MEDS: METOPROLOL TART 50 MG TAB PO (05:51)
[2017-11-12] MEDS: LevoFLOXacin 500 MG TABLET PO (05:57)
[2017-11-12] MEDS: HEPARIN SOD (PORCINE) 5000 UNITS/ML VIAL SQ (05:57)
[2017-11-12] MEDS: SLF 3 ML SYR IV (05:58)
[2017-11-12 06:01] LABS: HEMATOCRIT 35.8 % (42.0-52.0); HEMOGLOBIN 11.5 g/dl (13.5-17.5); MEAN CORPUSCULAR HEMOGLOBIN 28.3 pg (27.0-33.0); MEAN CORPUSCULAR HGB CONC 32.1 g/dl (32.0-36.5); PLATELET COUNT, AUTOMATED 144 10^3/uL (150-450); RED BLOOD COUNT 4.07 10^6/uL (4.30-6.10); RED CELL DISTRIBUTION WIDTH 12.3 % (11.5-14.5); WHITE BLOOD COUNT 11.5 10^3/uL (4.0-10.0)
[2017-11-12 06:06] LABS: ADD MANUAL DIFFER YES; DIFF SLIDE NUMBER 14; POS COUNT POS FLAG; POSITIVE MORPH POS FLAG
[2017-11-12 06:18] LABS: ALBUMIN 2.2 GM/DL (3.2-5.2); ALBUMIN/GLOBULIN RATIO 0.76 (1.00-1.93); ALKALINE PHOSPHATASE 63 U/L (45-117); ALT/SGPT 22 U/L (12-78); ANION GAP 2 MEQ/L (8-16); AST/SGOT 18 U/L (7-37); BILIRUBIN,TOTAL 0.2 MG/DL (0.2-1.0); BLOOD UREA NITROGEN 19 MG/DL (7-18); CALCIUM LEVEL 8.3 MG/DL (8.5-10.1); CARBON DIOXIDE LEVEL 39 MEQ/L (21-32); CHLORIDE LEVEL 101 MEQ/L (98-107); CREATININE FOR GFR 0.56 MG/DL (0.70-1.30); GLOMERULAR FILTRATION RATE > 60.0 (>60); GLUCOSE, FASTING 94 MG/DL (70-100); MAGNESIUM LEVEL 2.3 MG/DL (1.8-2.4); POTASSIUM SERUM 3.9 MEQ/L (3.5-5.1); SODIUM LEVEL 142 MEQ/L (136-145); TOTAL PROTEIN 5.1 GM/DL (6.4-8.2)
[2017-11-12 06:33] LABS: BANDS 4 % (< 11); EOSINOPHILS 1 % (0-5); LYMPHOCYTES 25 % (16-52); MONOCYTES 3 % (0-8); NEUTROPHILS 67 % (35-75); PLATELET ESTIMATE NORMAL (NORMAL)
[2017-11-12] MEDS: SYMBICORT 80/4.5MCG INHALER 6GM INH (08:42)
[2017-11-12] MEDS ORDERED: PILL CRUSHER/CUTTER 1 EACH XX (08:45)
[2017-11-12] MEDS: LOSARTAN 25 MG TAB PO (09:00)
[2017-11-12] MEDS ORDERED: LOSARTAN 25 MG TAB PO (09:00)
[2017-11-12] MEDS: predniSONE 10 MG TAB PO (09:25)
[2017-11-12] MEDS: TIOTROPIUM INHALER/CAPSULE (SPIRIVA) INH (09:52)
[2017-11-12] MEDS: SODIUM CHLORIDE 0.9% 1000 ML IV (11:26)
== END 2017-11-12 13:05 | disposition home or self-care (01) | DRG 133 ==
LOC: M PCU 11-10 11:04 → M MSPAV 11-11 14:45 → M ED 01:57 → M ED INP 05:21 → M ICU 06:21
DX: J96.02 Acute respiratory failure with hypercapnia (principal); N17.9 Acute kidney failure, unspecified; J44.1 Chronic obstructive pulmonary disease with (acute) exacerbation; R00.0 Tachycardia, unspecified; E78.5 Hyperlipidemia, unspecified; I10 Essential (primary) hypertension; Z87.891 Personal history of nicotine dependence; Z79.899 Other long term (current) drug therapy; Z91.040 Latex allergy status; J96.01 Acute respiratory failure with hypoxia

== ENCOUNTER → 2018-02-25 | Outpatient (CLI) | payer OTHER | LOC: M RAD 13:52 | DX: J44.9 Chronic obstructive pulmonary disease, unspecified (principal) | CPT/HCPCS: 71250 ==

== ENCOUNTER 2020-11-14 19:42 | Emergency (ER) | payer MEDICARE, OTHER ==
[~2020-11-14] VITALS: Ht 170.2 cm; Wt 81.8 kg
[~2020-11-14 19:42] MED LIST: ALBU83IN INH; COZA1TAB PO; DOXY-350 PO; LOPR1TAB6 PO; LOSA50TA88 PO; METO50TA7 PO; NEBUMIS2 XX; PRED10TA2 PO; PULM90IN INH; SPIR1CAP INH; SYMB80INH INH; VENTAER IN
[2020-11-14] MEDS ORDERED: HYDR12CA (19:53)
[2020-11-14] MEDS ORDERED: PARO20TA3 (19:53)
[2020-11-14] MEDS ORDERED: NS 1,000 ML IV ONE (20:05)
[2020-11-14] MEDS ORDERED: GI COCKTAIL 50ML BTL(HYOSCYAMINE/MAALOX/LIDOCAINE VISCOUS)(1:3:1) PO ONE (20:25)
[2020-11-14 20:28] LABS: BASO # 0.1 10^3/uL (0.0-0.2); BASO % 0.8 % (0.0-1.0); EOS # 0.2 10^3/uL (0.0-0.5); EOS % 1.8 % (0.0-3.0); HEMATOCRIT 45.4 % (42.0-52.0); HEMOGLOBIN 14.7 g/dl (13.5-17.5); LYMPH # 3.8 10^3/uL (1.5-5.0); MEAN CORPUSCULAR HEMOGLOBIN 29.4 pg (27.0-33.0); MEAN CORPUSCULAR HGB CONC 32.4 g/dl (32.0-36.5); MEAN CORPUSCULAR VOLUME 90.8 fl (80.0-96.0); MONO # 0.8 10^3/uL (0.0-0.8); MONO % 6.8 % (2.0-8.0); NEUTROPHILS # 6.3 10^3/uL (1.5-8.5); NEUTROPHILS % 55.4 % (36.0-66.0); PLATELET COUNT, AUTOMATED 220 10^3/uL (150-450); WHITE BLOOD COUNT 11.3 10^3/uL (4.0-10.0)
[2020-11-14 20:38] LABS: INR 0.84; PROTHROMBIN TIME 11.7 SECONDS (12.5-14.3)
[2020-11-14 20:39] LABS: PARTIAL THROMBOPLASTIN TIME 30.1 SECONDS (24.2-38.5)
[2020-11-14 20:42] LABS: D-DIMER QUANT 345.49 ng/ml (<500)
[2020-11-14 20:48] LABS: ALBUMIN 3.6 GM/DL (3.2-5.2); ALT/SGPT 27 U/L (12-78); BILIRUBIN,DIRECT < 0.1 MG/DL (0.0-0.2); BILIRUBIN,TOTAL 0.3 MG/DL (0.2-1.0); BLOOD UREA NITROGEN 15 MG/DL (7-18); CALCIUM LEVEL 8.6 MG/DL (8.5-10.1); CARBON DIOXIDE LEVEL 29 MEQ/L (21-32); CHLORIDE LEVEL 104 MEQ/L (98-107); CK-MB VALUE MASS < 1.0 NG/ML (<3.6); CPK CREATINE PHOSPHOKINASE 73 U/L (39-308); CREATININE FOR GFR 1.15 MG/DL (0.70-1.30); FREE T4 0.93 NG/DL (0.76-1.46); GLOMERULAR FILTRATION RATE > 60.0 (>60); GLUCOSE, FASTING 263 MG/DL (70-100); LIPASE 122 U/L (73-393); MB/CK RELATIVE INDEX 1.37 (< OR =4); NT-PRO BNP 45 PG/ML (<125); POTASSIUM SERUM 4.7 MEQ/L (3.5-5.1); SODIUM LEVEL 139 MEQ/L (136-145); THYROID STIMULATING HORMONE 0.692 uIU/ML (0.358-3.740); TROPONIN I < 0.02 NG/ML (< 0.10)
[2020-11-14] MEDS ORDERED: PROMETHAZINE INJ 25 MG/ML VIAL (J2550) IV ONE (20:55)
[2020-11-14 20:56] LABS: ERYTHROCYTE SEDIMENTATION RATE 17 mm/hr (0-15)
[2020-11-14] MEDS ORDERED: ISOVUE-370 76% 100ML VIAL As Ordered ONE (21:03)
--- NOTE | 2020-11-14 21:38 | REPVR ---
PROCEDURE INFORMATION: Exam: XR Chest Exam date and time: 11/14/2020 8:12 PM Age: 50 years old Clinical indication: Pain; Angina pectoris; Additional info: Chest pain TECHNIQUE: Imaging protocol: XR of the chest. Views: 1 view. COMPARISON: CR Chest, 1 view 11/28/2019 4:12 AM FINDINGS: Lungs: Mild pulmonary hyperinflation with relative lucency of lung which is similar to the prior study. There are no interval infiltrates. Pleural spaces: Unremarkable. No pleural effusion. No pneumothorax. Heart/Mediastinum: The heart and mediastinum are unchanged. Bones/joints: Unremarkable. Other findings: Lordotic projection which is increased since the prior study. IMPRESSION: Negative stable lordotic chest since 11/28/2019. Electronically signed by: Honorio Bonilla On 11/14/2020 21:37:44 PM
--- NOTE | 2020-11-14 21:46 | REPVR ---
PROCEDURE INFORMATION: Exam: CTA Chest With Contrast Exam date and time: 11/14/2020 9:27 PM Age: 50 years old Clinical indication: Chest wall pain; Additional info: Chest pain, abdominal pain, nausea TECHNIQUE: Imaging protocol: Computed tomographic angiography of the chest with contrast. 3D rendering (Not supervised by radiologist): MIP and/or 3D reconstructed images were created by the technologist. Radiation optimization: All CT scans at this facility use at least one of these dose optimization techniques: automated exposure control; mA and/or kV adjustment per patient size (includes targeted exams where dose is matched to clinical indication); or iterative reconstruction. Contrast material: ISOVUE 370; Contrast volume: 100 ml; Contrast route: INTRAVENOUS (IV); COMPARISON: CT Chest without contrast 02/25/2018 2:11 PM FINDINGS: Pulmonary arteries: The main pulmonary artery measures 22 mm. No pulmonary embolism is identified. Aorta: The ascending thoracic aorta measures 25 mm. Lungs: Unremarkable. No consolidation. No masses. Pleural spaces: Unremarkable. No pneumothorax. No pleural effusion. Heart: Unremarkable. No cardiomegaly. No pericardial effusion. Lymph nodes: Unremarkable. No enlarged lymph nodes. Gallbladder and bile ducts: The gallbladder is contracted with no stones. Kidneys and ureters: Moderate left renal atrophy with left renal parenchymal calcification and question of nonobstructing calculi. Probable cyst measuring 14 mm in the left kidney which is redemonstrated with little change from the prior study. Stomach and bowel: Borderline distention of the stomach with fluid and food. Bones/joints: Decreased height and wedge configuration of T6 and to a lesser degree T7 which appear to be chronic and are unchanged from 02/25/2018. Soft tissues: Unremarkable. IMPRESSION: 1. There is borderline distention of the stomach which in view of a contracted gallbladder likely reflects recent ingestion. 2. Left renal atrophy with left renal calcifications which are unchanged from prior study. 3. Otherwise negative CTA chest. No pulmonary embolism is identified. Electronically signed by: Honorio Bonilla On 11/14/2020 21:45:40 PM
--- NOTE | 2020-11-14 21:52 | REPVR ---
PROCEDURE INFORMATION: Exam: CT Abdomen And Pelvis With Contrast Exam date and time: 11/14/2020 9:27 PM Age: 50 years old Clinical indication: Abdominal pain; Additional info: Chest pain, abdominal pain, nausea TECHNIQUE: Imaging protocol: Computed tomography of the abdomen and pelvis with contrast. Radiation optimization: All CT scans at this facility use at least one of these dose optimization techniques: automated exposure control; mA and/or kV adjustment per patient size (includes targeted exams where dose is matched to clinical indication); or iterative reconstruction. Contrast material: ISOVUE 370; Contrast volume: 100 ml; Contrast route: INTRAVENOUS (IV); COMPARISON: CT Chest without contrast 02/25/2018 2:11 PM FINDINGS: Lungs: Minimal bibasilar bullous change. Liver: Normal. No mass. Gallbladder and bile ducts: The gallbladder is contracted with no stones. Pancreas: Normal. No ductal dilation. Spleen: Normal. No splenomegaly. Adrenal glands: Fullness of the left adrenal which is similar to the prior study and may reflect hyperplasia. Kidneys and ureters: Moderate left renal atrophy with multiple calcifications and renal cysts measuring up to 2.5 cm which are redemonstrated since the prior study little change. Small nonobstructing right renal calculus in the lower pole. Stomach and bowel: Borderline distention of the stomach with fluid and food material. There is colonic diverticulosis without evidence of diverticulitis. Appendix: A normal appendix is seen. Intraperitoneal space: Unremarkable. No free air. No significant fluid collection. Vasculature: There is mild calcification of the abdominal aorta with extension into the iliac arteries. Lymph nodes: Unremarkable. No enlarged lymph nodes. Urinary bladder: Unremarkable as visualized. Reproductive: Unremarkable as visualized. Bones/joints: Slight anterior wedge configuration of T11 which appears to be chronic. Soft tissues: Minimal fat filled bilateral inguinal hernias. IMPRESSION: 1. Moderate left renal atrophy with left renal calcifications and few cysts which is similar to 02/25/2018. 2. There is borderline distention of the stomach which in view of a contracted gallbladder likely reflects recent ingestion. 3. Small nonobstructing right renal calculus in the lower pole. 4. Otherwise negative CT abdomen/pelvis. Electronically signed by: Honorio Bonilla On 11/14/2020 21:52:13 PM
[2020-11-14] MEDS ORDERED: LORazepam 2 MG/ML VIAL IV STA (22:13)
[2020-11-14] MEDS ORDERED: NS 500 ML IV ONE (22:15)
[2020-11-14 22:24] LABS: MAGNESIUM LEVEL 1.9 MG/DL (1.8-2.4)
[2020-11-14 23:22] LABS: AMPHETAMINES LEVEL URINE NEGATIVE (NEGATIVE); BARBITURATES URINE NEGATIVE (NEGATIVE); BENZODIAZEPINES URINE NEGATIVE (NEGATIVE); CANNABINOIDS URINE NEGATIVE (NEGATIVE); COCAINE METABOLITE URINE NEGATIVE (NEGATIVE); METHADONE URINE NEGATIVE (NEGATIVE); OPIATES URINE NEGATIVE (NEGATIVE); PHENCYCLIDINE URINE NEGATIVE (NEGATIVE)
[2020-11-14] MEDS ORDERED: LORazepam 2 MG TAB PO STA (23:35)
[2020-11-15 01:14] LABS: CK-MB VALUE MASS < 1.0 NG/ML (<3.6); CPK CREATINE PHOSPHOKINASE 43 U/L (39-308); MB/CK RELATIVE INDEX 2.33 (< OR =4); TROPONIN I < 0.02 NG/ML (< 0.10)
[2020-11-15 01:31] VITALS: BP 130/79
--- NOTE | 2020-11-15 21:24 | ECGEPIP ---
[facility] - ED Test Date: 2020-11-14 Pat Name: JANESSA LIM Department: Room: - Gender: Male [employer] Supervisor: FABRICIO : 1970 Requested By: JORDANA FLORES Order Number: [id number] Reading MD: Gwen Conway Measurements Intervals Alpha Rate: 124 P: 90 AK: 138 QRS: -46 QRSD: 78 T: 72 QT: 314 QTc: 451 Interpretive Statements Sinus tachycardia Left axis deviation right ventricular conduction delay Pulmonary disease pattern decreased rate 11/06/17 Electronically Signed on 11-15-2020 21:23:44 EDT by Gwen Conway
== END 2020-11-15 03:17 | disposition home or self-care (01) ==
LOC: M ED 19:42 → EDBD 19:42 → M ED 11-15 03:17
DX: R00.0 Tachycardia, unspecified (principal); T43.225A Adverse effect of selective serotonin reuptake inhibitors, initial encounter; I45.89 Other specified conduction disorders; Y92.9 Unspecified place or not applicable; N20.0 Calculus of kidney; N28.89 Other specified disorders of kidney and ureter; N28.1 Cyst of kidney, acquired; Y93.9 Activity, unspecified; I10 Essential (primary) hypertension; J44.9 Chronic obstructive pulmonary disease, unspecified; F17.200 Nicotine dependence, unspecified, uncomplicated; Z79.899 Other long term (current) drug therapy; Z91.040 Latex allergy status
CPT/HCPCS: 71045; 71275; 74177; 80048; 80076; 80307; 82550; 82553; 83605; 83690; 83735; 83880; 84439; 84443; 84484; 85025; 85379; 85610; 85652; 85730; 86140; 93005; 93041; 94760; 96361; 96374; 96375; 99285; J2060; Q9967

== ENCOUNTER 2021-07-14 18:14 | Emergency (ER) | payer MEDICARE, OTHER ==
[~2021-07-14] VITALS: Ht 170.2 cm; Wt 76.8 kg
[~2021-07-14 18:14] MED LIST changes: +HYDR12CA; +LOSA50TA28 PO; -LOSA50TA88 PO; +PARO20TA3
[2021-07-14 18:16] VITALS: BP 169/105
[2021-07-14] MEDS ORDERED: LOSA100T45 (18:31)
[2021-07-14] MEDS ORDERED: METO1TAB7 (18:31)
== END 2021-07-15 01:20 | disposition left against medical advice (07) ==
LOC: M ED 18:14
DX: Z53.21 Procedure and treatment not carried out due to patient leaving prior to being seen by health care provider (principal)

== ENCOUNTER 2021-10-10 11:45 | Emergency (ER) | payer MEDICARE, OTHER ==
[~2021-10-10] VITALS: Ht 170.2 cm; Wt 75.5 kg
[~2021-10-10 11:45] MED LIST changes: +ALBU2.5V10 INH; -ALBU83IN INH; +LOSA100T45; +METO1TAB7
[2021-10-10 12:36] LABS: BASO # 0.1 10^3/uL (0.0-0.2); BASO % 0.7 % (0.0-1.0); EOS # 0.1 10^3/uL (0.0-0.5); EOS % 1.2 % (0.0-3.0); HEMATOCRIT 46.7 % (42.0-52.0); HEMOGLOBIN 15.1 g/dl (13.5-17.5); LYMPH # 3.3 10^3/uL (1.5-5.0); LYMPH % 27.9 % (24.0-44.0); MEAN CORPUSCULAR HGB CONC 32.3 g/dl (32.0-36.5); MEAN CORPUSCULAR VOLUME 92.8 fl (80.0-96.0); MONO # 0.9 10^3/uL (0.0-0.8); NEUTROPHILS # 7.2 10^3/uL (1.5-8.5); PLATELET COUNT, AUTOMATED 249 10^3/uL (150-450); RED BLOOD COUNT 5.03 10^6/uL (4.30-6.10); WHITE BLOOD COUNT 11.8 10^3/uL (4.0-10.0)
[2021-10-10 13:02] LABS: ALBUMIN 3.9 GM/DL (3.2-5.2); ALT/SGPT 14 U/L (12-78); BILIRUBIN,TOTAL 0.5 MG/DL (0.2-1.0); BLOOD UREA NITROGEN 6 MG/DL (7-18); CALCIUM LEVEL 9.2 MG/DL (8.5-10.1); CARBON DIOXIDE LEVEL 31 MEQ/L (21-32); CHLORIDE LEVEL 104 MEQ/L (98-107); CREATININE FOR GFR 1.15 MG/DL (0.70-1.30); GLOMERULAR FILTRATION RATE > 60.0 (>56); GLUCOSE, FASTING 109 MG/DL (70-100); POTASSIUM SERUM 4.2 MEQ/L (3.5-5.1); SODIUM LEVEL 140 MEQ/L (136-145); TOTAL PROTEIN 7.1 GM/DL (6.4-8.2)
[2021-10-10] MEDS ORDERED: IPRATROPIUM 0.5MG/ALBUTEROL 2.5MG INH SOL UD 3ML (DUONEB) NEB ONE (14:10)
[2021-10-10] MEDS ORDERED: ISOVUE-370 76% 100ML VIAL As Ordered ONE (14:15)
[2021-10-10 14:24] LABS: LIPASE 90 U/L (73-393)
[2021-10-10 14:28] LABS: CK-MB VALUE MASS < 1.0 NG/ML (<3.6); CPK CREATINE PHOSPHOKINASE 31 U/L (39-308); MB/CK RELATIVE INDEX 3.23 (< OR =4)
[2021-10-10 15:24] LABS: CK-MB VALUE MASS < 1.0 NG/ML (<3.6); CPK CREATINE PHOSPHOKINASE 42 U/L (39-308); MB/CK RELATIVE INDEX 2.38 (< OR =4)
[2021-10-10 16:03] VITALS: BP 147/76
== END 2021-10-10 16:22 | disposition home or self-care (01) ==
LOC: M ED 11:45 → EDBD 11:45 → M ED 16:22
DX: R42 Dizziness and giddiness (principal); R07.89 Other chest pain; Z87.891 Personal history of nicotine dependence; Z79.899 Other long term (current) drug therapy; Z91.040 Latex allergy status
CPT/HCPCS: 70450; 71275; 74177; 80053; 82550; 82553; 83690; 84484; 85025; 93005; 93041; 93970; 94640; 94760; 99285; Q9967

== ENCOUNTER 2021-10-22 15:09 | Inpatient (IN) | payer MEDICARE, OTHER ==
[~2021-10-22] VITALS: Ht 170.2 cm; Wt 72.4 kg
[~2021-10-22 15:09] MED LIST changes: -LOSA100T45; +LOSA100T45 PO
[2021-10-22] MEDS ORDERED: PARO5TAB PO (15:30)
[2021-10-22] MEDS ORDERED: AMLO1TAB24 PO (15:30)
[2021-10-22] MEDS ORDERED: ASPIRIN 81 MG CHEW TABLET PO ONE (15:50)
[2021-10-22 16:21] LABS: BASO # 0.1 10^3/uL (0.0-0.2); BASO % 0.5 % (0.0-1.0); EOS # 0.1 10^3/uL (0.0-0.5); EOS % 0.3 % (0.0-3.0); HEMATOCRIT 43.8 % (42.0-52.0); HEMOGLOBIN 14.9 g/dl (13.5-17.5); LYMPH # 1.7 10^3/uL (1.5-5.0); LYMPH % 11.3 % (24.0-44.0); MEAN CORPUSCULAR HEMOGLOBIN 30.6 pg (27.0-33.0); MEAN CORPUSCULAR VOLUME 89.9 fl (80.0-96.0); MONO % 6.9 % (2.0-8.0); NEUTROPHILS % 80.4 % (36.0-66.0); PLATELET COUNT, AUTOMATED 246 10^3/uL (150-450); RED BLOOD COUNT 4.87 10^6/uL (4.30-6.10)
[2021-10-22] MEDS ORDERED: NS 500 ML IV ONE (16:30)
[2021-10-22 16:34] LABS: INR 0.91; PROTHROMBIN TIME 12.7 SECONDS (12.7-14.5)
[2021-10-22 16:35] LABS: PARTIAL THROMBOPLASTIN TIME 32.4 SECONDS (25.9-37.0)
[2021-10-22 16:37] LABS: D-DIMER QUANT 339.78 ng/ml (<500)
[2021-10-22 17:13] LABS: ALBUMIN 3.9 GM/DL (3.2-5.2); ALT/SGPT 22 U/L (12-78); BILIRUBIN,DIRECT < 0.1 MG/DL (0.0-0.2); BILIRUBIN,TOTAL 0.4 MG/DL (0.2-1.0); BLOOD UREA NITROGEN 8 MG/DL (7-18); CALCIUM LEVEL 9.6 MG/DL (8.5-10.1); CARBON DIOXIDE LEVEL 26 MEQ/L (21-32); CHLORIDE LEVEL 106 MEQ/L (98-107); CK-MB VALUE MASS < 1.0 NG/ML (<3.6); CPK CREATINE PHOSPHOKINASE 74 U/L (39-308); CREATININE FOR GFR 0.97 MG/DL (0.70-1.30); FREE T4 1.11 NG/DL (0.76-1.46); GLOMERULAR FILTRATION RATE > 60.0 (>56); GLUCOSE, FASTING 126 MG/DL (70-100); LIPASE 94 U/L (73-393); MB/CK RELATIVE INDEX 1.35 (< OR =4); POTASSIUM SERUM 4.2 MEQ/L (3.5-5.1); SODIUM LEVEL 141 MEQ/L (136-145); THYROID STIMULATING HORMONE 0.799 uIU/ML (0.358-3.740); TOTAL PROTEIN 7.4 GM/DL (6.4-8.2)
[2021-10-22] MEDS: GASTROGRAFIN SOLUTION 30ML PO SCH ×2 (17:22→17:46)
[2021-10-22] MEDS ORDERED: ISOVUE-370 76% 100ML VIAL As Ordered ONE (18:51)
[2021-10-22 19:42] LABS: CK-MB VALUE MASS 1.2 NG/ML (<3.6); MB/CK RELATIVE INDEX 4.29 (< OR =4)
[2021-10-22] MEDS ORDERED: OMEP40CA5 PO (21:26)
[2021-10-22] MEDS ORDERED: ROSU20TA5 PO (21:26)
[2021-10-22] MEDS ORDERED: SPIR12.9 INH (21:26)
[2021-10-22] MEDS ORDERED: HOME MED LIST COMPLETE! XX SCH (21:30)
[2021-10-22] MEDS ORDERED: NS 1,000 ML IV SCH (21:45)
[2021-10-22] MEDS ORDERED: LEVALBUTEROL HFA 45MCG/ACT 15 GM INHALER INH PRN (21:45)
[2021-10-22] MEDS ORDERED: ACETAMINOPHEN TAB 650MG DOSE (2X325MG) PO PRN (21:45)
[2021-10-22] MEDS ORDERED: LEVALBUTEROL 1.25 MG/0.5 ML CONCENTRATE NEB NEB ONE (22:00)
[2021-10-22] MEDS ORDERED: IPRATROPIUM 0.02% SOLN 0.5MG 2.5ML NEB NEB ONE (22:00)
[2021-10-22] MEDS ORDERED: methylPREDNISolone 40MG 1ML VIAL IV ONE (22:00)
[2021-10-22 22:16] LABS: RSV AMPLIFICATION NEGATIVE (NEGATIVE)
[2021-10-23] VITALS (7 sets, daily range): BP systolic 127–181; BP diastolic 80–96
[2021-10-23 00:15] LABS: VENOUS BASE EXCESS 0.9 (-2.0-2.0); VENOUS HCO3 25.7 MEQ/L (23.0-27.0); VENOUS O2 SATURATION 98.2 % (60.0-80.0); VENOUS PARTIAL PRESSURE O2 105.8 mmHg (30.0-50.0); VENOUS PH 7.405 UNITS (7.330-7.430); VENOUS STANDARD HCO3 25.3 MEQ/L
[2021-10-23] MEDS: IPRATROPIUM 0.02% SOLN 0.5MG 2.5ML NEB NEB SCH ×2 (02:36→07:12)
[2021-10-23 06:35] LABS: HEMATOCRIT 40.1 % (42.0-52.0); HEMOGLOBIN 13.4 g/dl (13.5-17.5); MEAN CORPUSCULAR HEMOGLOBIN 30.7 pg (27.0-33.0); MEAN CORPUSCULAR HGB CONC 33.4 g/dl (32.0-36.5); MEAN CORPUSCULAR VOLUME 91.8 fl (80.0-96.0); PLATELET COUNT, AUTOMATED 183 10^3/uL (150-450); RED BLOOD COUNT 4.37 10^6/uL (4.30-6.10); WHITE BLOOD COUNT 7.1 10^3/uL (4.0-10.0)
[2021-10-23 07:05] LABS: BLOOD UREA NITROGEN 8 MG/DL (7-18); CALCIUM LEVEL 8.6 MG/DL (8.5-10.1); CARBON DIOXIDE LEVEL 26 MEQ/L (21-32); CHLORIDE LEVEL 106 MEQ/L (98-107); CREATININE FOR GFR 0.73 MG/DL (0.70-1.30); GLOMERULAR FILTRATION RATE > 60.0 (>56); GLUCOSE, FASTING 137 MG/DL (70-100); MAGNESIUM LEVEL 1.9 MG/DL (1.8-2.4); POTASSIUM SERUM 4.4 MEQ/L (3.5-5.1); SODIUM LEVEL 139 MEQ/L (136-145)
[2021-10-23] MEDS: predniSONE 20 MG TAB PO SCH (10:05)
[2021-10-23] MEDS: ENOXAPARIN 40MG/0.4ML SYRINGE (J1650 PER 10MG) SC SCH (10:52)
[2021-10-23] MEDS: PARoxetine 10MG TABLET PO SCH (10:52)
[2021-10-23] MEDS: TIOTROPIUM INHALER/CAPSULE (SPIRIVA) INH SCH (11:02)
[2021-10-23] MEDS: SYMBICORT 80/4.5MCG INHALER 6GM INH SCH ×2 (11:02→20:14)
[2021-10-23] MEDS: LEVALBUTEROL 1.25 MG/0.5 ML CONCENTRATE NEB NEB SCH ×3 (11:03→20:00)
[2021-10-23] MEDS: VERAPAMIL 40 MG TAB PO SCH ×2 (13:26→21:05)
[2021-10-23] MEDS ORDERED: LORazepam 0.5 MG TAB PO ONE (18:30)
[2021-10-23] MEDS: OMEPRAZOLE 20MG CAP PO SCH (21:04)
[2021-10-23] MEDS: ROSUVASTATIN 10 MG TAB (CRESTOR) PO SCH (21:04)
[2021-10-24] VITALS (7 sets, daily range): BP systolic 115–167; BP diastolic 62–98
[2021-10-24] MEDS: VERAPAMIL 40 MG TAB PO SCH (05:43)
[2021-10-24 06:11] LABS: HEMATOCRIT 40.7 % (42.0-52.0); HEMOGLOBIN 13.5 g/dl (13.5-17.5); MEAN CORPUSCULAR HEMOGLOBIN 30.2 pg (27.0-33.0); MEAN CORPUSCULAR HGB CONC 33.2 g/dl (32.0-36.5); MEAN CORPUSCULAR VOLUME 91.1 fl (80.0-96.0); PLATELET COUNT, AUTOMATED 190 10^3/uL (150-450); RED BLOOD COUNT 4.47 10^6/uL (4.30-6.10); WHITE BLOOD COUNT 13.4 10^3/uL (4.0-10.0)
[2021-10-24 06:40] LABS: ALBUMIN 3.4 GM/DL (3.2-5.2); ALT/SGPT 16 U/L (12-78); BILIRUBIN,TOTAL 0.3 MG/DL (0.2-1.0); BLOOD UREA NITROGEN 9 MG/DL (7-18); CALCIUM LEVEL 9.7 MG/DL (8.5-10.1); CARBON DIOXIDE LEVEL 29 MEQ/L (21-32); CHLORIDE LEVEL 105 MEQ/L (98-107); CREATININE FOR GFR 0.88 MG/DL (0.70-1.30); GLOMERULAR FILTRATION RATE > 60.0 (>56); GLUCOSE, FASTING 100 MG/DL (70-100); SODIUM LEVEL 141 MEQ/L (136-145); TOTAL PROTEIN 6.5 GM/DL (6.4-8.2)
[2021-10-24] MEDS: SYMBICORT 80/4.5MCG INHALER 6GM INH SCH ×2 (07:32→20:15)
[2021-10-24] MEDS: TIOTROPIUM INHALER/CAPSULE (SPIRIVA) INH SCH (07:33)
[2021-10-24] MEDS: LEVALBUTEROL 1.25 MG/0.5 ML CONCENTRATE NEB NEB SCH ×4 (07:33→20:00)
[2021-10-24] MEDS: ENOXAPARIN 40MG/0.4ML SYRINGE (J1650 PER 10MG) SC SCH (08:46)
[2021-10-24] MEDS: predniSONE 20 MG TAB PO SCH (08:47)
[2021-10-24] MEDS: PARoxetine 10MG TABLET PO SCH (08:47)
[2021-10-24] MEDS: VERAPAMIL 80MG TABLET PO SCH ×2 (14:02→21:10)
[2021-10-24] MEDS ORDERED: LORazepam 0.5 MG TAB PO PRN (18:40)
[2021-10-24] MEDS ORDERED: PARoxetine 10MG TABLET PO ONE (18:40)
[2021-10-24] MEDS: OMEPRAZOLE 20MG CAP PO SCH (21:09)
[2021-10-24] MEDS: ROSUVASTATIN 10 MG TAB (CRESTOR) PO SCH (21:09)
[2021-10-25] VITALS: BP 139/77
[2021-10-25 04:00] VITALS: BP 147/83
[2021-10-25 05:04] LABS: HEMATOCRIT 36.9 % (42.0-52.0); HEMOGLOBIN 12.3 g/dl (13.5-17.5); MEAN CORPUSCULAR HEMOGLOBIN 30.8 pg (27.0-33.0); MEAN CORPUSCULAR HGB CONC 33.3 g/dl (32.0-36.5); MEAN CORPUSCULAR VOLUME 92.3 fl (80.0-96.0); PLATELET COUNT, AUTOMATED 198 10^3/uL (150-450); WHITE BLOOD COUNT 11.6 10^3/uL (4.0-10.0)
[2021-10-25 05:44] LABS: ALBUMIN 3.2 GM/DL (3.2-5.2); ALT/SGPT 14 U/L (12-78); BILIRUBIN,TOTAL 0.3 MG/DL (0.2-1.0); BLOOD UREA NITROGEN 16 MG/DL (7-18); CALCIUM LEVEL 9.3 MG/DL (8.5-10.1); CARBON DIOXIDE LEVEL 30 MEQ/L (21-32); CHLORIDE LEVEL 105 MEQ/L (98-107); CREATININE FOR GFR 0.93 MG/DL (0.70-1.30); GLOMERULAR FILTRATION RATE > 60.0 (>56); GLUCOSE, FASTING 101 MG/DL (70-100); SODIUM LEVEL 143 MEQ/L (136-145)
[2021-10-25] MEDS: VERAPAMIL 80MG TABLET PO SCH ×3 (06:20→21:08)
[2021-10-25] MEDS: LEVALBUTEROL 1.25 MG/0.5 ML CONCENTRATE NEB NEB SCH ×4 (07:24→20:00)
[2021-10-25] MEDS: TIOTROPIUM INHALER/CAPSULE (SPIRIVA) INH SCH (07:24)
[2021-10-25] MEDS: SYMBICORT 80/4.5MCG INHALER 6GM INH SCH ×2 (07:24→20:22)
[2021-10-25 08:20] VITALS: BP 144/80
[2021-10-25] MEDS: PARoxetine 20MG TABLET PO SCH (08:26)
[2021-10-25] MEDS: ENOXAPARIN 40MG/0.4ML SYRINGE (J1650 PER 10MG) SC SCH (08:26)
[2021-10-25] MEDS: predniSONE 20 MG TAB PO SCH (08:26)
[2021-10-25] MEDS ORDERED: VERA240C PO (08:39)
[2021-10-25 13:10] VITALS: BP 150/80
[2021-10-25 20:00] VITALS: BP_SYST 130; BP_SYST 150; BP_DIAS 80; BP_DIAS 82
[2021-10-25] MEDS: OMEPRAZOLE 20MG CAP PO SCH (21:07)
[2021-10-25] MEDS: ROSUVASTATIN 10 MG TAB (CRESTOR) PO SCH (21:08)
[2021-10-26 06:05] LABS: HEMATOCRIT 38.3 % (42.0-52.0); HEMOGLOBIN 12.4 g/dl (13.5-17.5); MEAN CORPUSCULAR HEMOGLOBIN 29.7 pg (27.0-33.0); MEAN CORPUSCULAR HGB CONC 32.4 g/dl (32.0-36.5); MEAN CORPUSCULAR VOLUME 91.8 fl (80.0-96.0); PLATELET COUNT, AUTOMATED 192 10^3/uL (150-450); RED BLOOD COUNT 4.17 10^6/uL (4.30-6.10)
[2021-10-26] MEDS: VERAPAMIL 80MG TABLET PO SCH ×2 (06:18→14:31)
[2021-10-26 06:27] LABS: ALBUMIN 3.1 GM/DL (3.2-5.2); ALT/SGPT 17 U/L (12-78); BILIRUBIN,TOTAL 0.4 MG/DL (0.2-1.0); BLOOD UREA NITROGEN 16 MG/DL (7-18); CALCIUM LEVEL 9.1 MG/DL (8.5-10.1); CARBON DIOXIDE LEVEL 32 MEQ/L (21-32); CHLORIDE LEVEL 104 MEQ/L (98-107); CREATININE FOR GFR 0.78 MG/DL (0.70-1.30); GLOMERULAR FILTRATION RATE > 60.0 (>56); GLUCOSE, FASTING 95 MG/DL (70-100); POTASSIUM SERUM 3.8 MEQ/L (3.5-5.1); SODIUM LEVEL 141 MEQ/L (136-145); TOTAL PROTEIN 5.9 GM/DL (6.4-8.2)
[2021-10-26 08:00] VITALS: BP 138/74
[2021-10-26] MEDS: LEVALBUTEROL 1.25 MG/0.5 ML CONCENTRATE NEB NEB SCH ×2 (08:00→11:30)
[2021-10-26] MEDS ORDERED: PRED10TA2 PO (08:22)
[2021-10-26] MEDS: SYMBICORT 80/4.5MCG INHALER 6GM INH SCH (08:32)
[2021-10-26] MEDS: TIOTROPIUM INHALER/CAPSULE (SPIRIVA) INH SCH (08:32)
[2021-10-26] MEDS: predniSONE 20 MG TAB PO SCH (08:58)
[2021-10-26] MEDS: ENOXAPARIN 40MG/0.4ML SYRINGE (J1650 PER 10MG) SC SCH (08:58)
[2021-10-26] MEDS: PARoxetine 20MG TABLET PO SCH (08:58)
[2021-10-26 14:31] VITALS: BP 133/78
== END 2021-10-26 16:12 | disposition home or self-care (01) | DRG 309 ==
LOC: EDBD 15:09 → M ED 15:09 → M ED INP 15:10 → ENRESERV 23:00 → M PCU 10-23 00:28 → OBSVTOIN 10-24 13:45
PROVIDERS: ADMIT Internal Medicine; ATTEND Internal Medicine
PROC: B246ZZZ Ultrasonography of Right and Left Heart (ICD-10-PCS; principal; 2021-10-24)
DX: R00.0 Tachycardia, unspecified (principal); J44.1 Chronic obstructive pulmonary disease with (acute) exacerbation; J96.11 Chronic respiratory failure with hypoxia; Z99.81 Dependence on supplemental oxygen; Z87.891 Personal history of nicotine dependence; K21.9 Gastro-esophageal reflux disease without esophagitis; E78.5 Hyperlipidemia, unspecified; F41.0 Panic disorder [episodic paroxysmal anxiety]; Z20.822 Contact with and (suspected) exposure to COVID-19; Z79.899 Other long term (current) drug therapy; Z91.040 Latex allergy status; I15.9 Secondary hypertension, unspecified; R42 Dizziness and giddiness; R00.2 Palpitations; R07.89 Other chest pain; F93.0 Separation anxiety disorder of childhood; F40.11 Social phobia, generalized; F43.9 Reaction to severe stress, unspecified

== ENCOUNTER 2023-05-15 11:02 | Inpatient (IN) | payer MEDICARE, OTHER ==
[~2023-05-15] VITALS: Ht 170.2 cm; Wt 83.0 kg
[~2023-05-15 11:02] MED LIST changes: +AMLO1TAB24 PO; -COZA1TAB PO; -DOXY-350 PO; +DOXY-444 PO; +LOSA-527 PO; -LOSA100T45 PO; +LOSA100T46 PO; +OMEP40CA5 PO; +PARO5TAB PO; +ROSU20TA61 PO; +SPIR12.9 INH; +VERA240C PO
[2023-05-15 11:47] LABS: ABG BASE EXCESS 1.4 (-2.0-2.0); ABG HCO3 32.3 MMOL/L (22.0-26.0); ABG O2 SATURATION 98.7 % (95.0-99.0); ABG PARTIAL PRESSURE O2 159.6 mmHg (75.0-100.0); ABG STANDARD HCO3 25.7 MMOL/L. (22.0-26.0); ABG TOTAL CO2 34.9 MMOL/L (22.0-29.0)
[2023-05-15 11:50] LABS: ABG PARTIAL PRESSURE CO2 86.3 mmHg (35.0-45.0); ABG pH (ARTERIAL) 7.191 UNITS (7.350-7.450)
[2023-05-15 11:52] LABS: HEMATOCRIT 44.2 % (42.0-52.0); HEMOGLOBIN 13.3 g/dl (13.5-17.5); MEAN CORPUSCULAR HEMOGLOBIN 28.7 pg (27.0-33.0); MEAN CORPUSCULAR HGB CONC 30.1 g/dl (32.0-36.5); MEAN CORPUSCULAR VOLUME 95.5 fl (80.0-96.0); PLATELET COUNT, AUTOMATED 324 10^3/uL (150-450); RED BLOOD COUNT 4.63 10^6/uL (4.30-6.10); VENOUS BASE EXCESS 0.9 (-2.0-2.0); VENOUS HCO3 32.5 MMOL/L (23.0-27.0); VENOUS O2 SATURATION 87.1 % (60.0-80.0); VENOUS PARTIAL PRESSURE CO2 90.8 mmHg (38.0-50.0); VENOUS PARTIAL PRESSURE O2 61.4 mmHg (30.0-50.0); VENOUS PH 7.171 UNITS (7.330-7.430); VENOUS TOTAL CO2 35.2 MMOL/L (24.0-28.0); WHITE BLOOD COUNT 14.8 10^3/uL (4.0-10.0)
[2023-05-15] MEDS ORDERED: FUROSEMIDE 20MG/2ML VIAL IV ONE (11:55)
[2023-05-15] MEDS ORDERED: cefTRIAXone SOD 2 GM in D5W MINI-BAG PLUS 50 ML IV ONE (11:55)
[2023-05-15] MEDS ORDERED: methylPREDNISolone 125MG 2ML VIAL IV ONE (12:20)
[2023-05-15 12:32] LABS: ATYPICAL LYMPH 7 % (0-5); LYMPHOCYTES 16 % (16-44); MONOCYTES 14 % (0-5); NEUTROPHILS 35 % (28-66); PLATELET ESTIMATE NORMAL (NORMAL)
[2023-05-15 12:34] LABS: TOXIC VACUOLATION 2+
[2023-05-15 13:07] LABS: ABG HCO3 33.3 MMOL/L (22.0-26.0); ABG O2 SATURATION 99.5 % (95.0-99.0); ABG PARTIAL PRESSURE O2 294.6 mmHg (75.0-100.0); ABG STANDARD HCO3 26.3 MMOL/L. (22.0-26.0); ABG TOTAL CO2 36.2 MMOL/L (22.0-29.0)
[2023-05-15 13:08] LABS: ABG PARTIAL PRESSURE CO2 92.2 mmHg (35.0-45.0); ABG pH (ARTERIAL) 7.176 UNITS (7.350-7.450)
[2023-05-15 13:53] LABS: ETHYL ALCOHOL (ETHANOL) < 0.003 % (0.000-0.010)
[2023-05-15 13:54] LABS: SALICYLATE LEVEL < 3.0 MG/DL (<30)
[2023-05-15 13:56] LABS: THYROID STIMULATING HORMONE 0.261 uIU/ML (0.55-4.78)
[2023-05-15 13:59] LABS: ALBUMIN 2.8 G/DL (3.2-5.2); ALKALINE PHOSPHATASE 87 U/L (46-116); ALT/SGPT 14 U/L (7.0-40); AST/SGOT 24 U/L (<34); BILIRUBIN,DIRECT 0.2 MG/DL (<0.4); BILIRUBIN,TOTAL 0.3 MG/DL (0.3-1.2); BLOOD UREA NITROGEN 56 MG/DL (9-23); CALCIUM LEVEL 9.4 MG/DL (8.5-10.1); CARBON DIOXIDE LEVEL 36 MMOL/L (20-31); CHLORIDE LEVEL 102 MMOL/L (98-107); CREATININE FOR GFR 1.38 MG/DL (0.70-1.30); GLOMERULAR FILTRATION RATE 57.6 (>56); GLUCOSE, FASTING 110 MG/DL (60-100); POTASSIUM SERUM 5.4 MMOL/L (3.5-5.1); SODIUM LEVEL 142 MMOL/L (136-145); TOTAL PROTEIN 6.8 G/DL (5.7-8.2)
[2023-05-15] MEDS: IPRATROPIUM 0.5MG/ALBUTEROL 2.5MG INH SOL UD 3ML (DUONEB) NEB SCH ×6 (14:05→23:25)
[2023-05-15 14:09] LABS: OSMOLALITY SERUM 333 MOSM/KG (275-295)
[2023-05-15] MEDS ORDERED: OMEP-173 PO (15:25)
[2023-05-15] MEDS ORDERED: BUDE10.7 INH (15:25)
[2023-05-15] MEDS ORDERED: VERA240T65 PO (15:25)
[2023-05-15] MEDS ORDERED: HOME MED LIST COMPLETE! XX SCH (15:25)
[2023-05-15 15:27] LABS: VENOUS BASE EXCESS 1.6 (-2.0-2.0); VENOUS HCO3 30.2 MMOL/L (23.0-27.0); VENOUS O2 SATURATION 99.4 % (60.0-80.0); VENOUS PARTIAL PRESSURE CO2 66.1 mmHg (38.0-50.0); VENOUS PH 7.278 UNITS (7.330-7.430); VENOUS TOTAL CO2 32.3 MMOL/L (24.0-28.0)
[2023-05-15 17:46] LABS: VENOUS BASE EXCESS 3.5 (-2.0-2.0); VENOUS HCO3 32.4 MMOL/L (23.0-27.0); VENOUS O2 SATURATION 98.8 % (60.0-80.0); VENOUS PARTIAL PRESSURE CO2 69.5 mmHg (38.0-50.0); VENOUS PARTIAL PRESSURE O2 156.2 mmHg (30.0-50.0); VENOUS PH 7.286 UNITS (7.330-7.430); VENOUS STANDARD HCO3 27.6 MMOL/L; VENOUS TOTAL CO2 34.5 MMOL/L (24.0-28.0)
[2023-05-15] MEDS: AZITHROMYCIN INJ 500 MG, VIAL MATE ADAPTER 1 EACH in NS 250 ML IV SCH (17:46)
[2023-05-15] MEDS: LR 1,000 ML IV SCH ×2 (17:46→22:55)
[2023-05-15 18:08] VITALS: BP 146/75; O2SAT 91
[2023-05-15 18:25] LABS: BLOOD UREA NITROGEN 57 MG/DL (9-23); CALCIUM LEVEL 9.4 MG/DL (8.5-10.1); CARBON DIOXIDE LEVEL 34 MMOL/L (20-31); CHLORIDE LEVEL 101 MMOL/L (98-107); CREATININE FOR GFR 1.25 MG/DL (0.70-1.30); GLOMERULAR FILTRATION RATE > 60.0 (>56); GLUCOSE, FASTING 118 MG/DL (60-100); MAGNESIUM LEVEL 3.4 MG/DL (1.8-2.4); PHOSPHORUS LEVEL 4.7 MG/DL (2.5-4.9); POTASSIUM SERUM 5.3 MMOL/L (3.5-5.1); SODIUM LEVEL 141 MMOL/L (136-145)
[2023-05-15 18:27] LABS: FREE T4 0.82 NG/DL (0.89-1.76)
[2023-05-15 18:28] VITALS: BP 149/81; TEMP 99.6; O2SAT 90
[2023-05-15 19:00] VITALS: BP 139/73; O2SAT 90
[2023-05-15 20:00] VITALS: BP 134/69; TEMP 99.6; O2SAT 91
[2023-05-15 21:22] LABS: VENOUS BASE EXCESS -0.2 (-2.0-2.0); VENOUS HCO3 27.6 MMOL/L (23.0-27.0); VENOUS PARTIAL PRESSURE CO2 58.6 mmHg (38.0-50.0); VENOUS PARTIAL PRESSURE O2 54.3 mmHg (30.0-50.0); VENOUS PH 7.291 UNITS (7.330-7.430); VENOUS STANDARD HCO3 24.1 MMOL/L; VENOUS TOTAL CO2 29.4 MMOL/L (24.0-28.0)
[2023-05-15] MEDS: methylPREDNISolone 125MG 2ML VIAL IV SCH (21:53)
[2023-05-15] MEDS: HEPARIN SOD (PORCINE) 5000UNITS/ML 1ML VIAL/SYRINGE SQ SCH (21:53)
[2023-05-16] VITALS (54 sets, daily range): BP systolic 73–163; BP diastolic 49–97; TEMP 97.8–99; O2SAT 91–100
[2023-05-16] MEDS: LR 1,000 ML IV SCH ×2 (00:37→05:35)
[2023-05-16] MEDS: IPRATROPIUM 0.5MG/ALBUTEROL 2.5MG INH SOL UD 3ML (DUONEB) NEB SCH ×5 (03:07→20:16)
[2023-05-16 04:54] LABS: VENOUS BASE EXCESS 4.8 (-2.0-2.0); VENOUS HCO3 32.1 MMOL/L (23.0-27.0); VENOUS O2 SATURATION 99.1 % (60.0-80.0); VENOUS PARTIAL PRESSURE O2 176.2 mmHg (30.0-50.0); VENOUS PH 7.346 UNITS (7.330-7.430); VENOUS STANDARD HCO3 28.8 MMOL/L; VENOUS TOTAL CO2 33.9 MMOL/L (24.0-28.0)
[2023-05-16 05:02] LABS: HEMATOCRIT 40.6 % (42.0-52.0); HEMOGLOBIN 12.3 g/dl (13.5-17.5); MEAN CORPUSCULAR HEMOGLOBIN 29.1 pg (27.0-33.0); MEAN CORPUSCULAR HGB CONC 30.3 g/dl (32.0-36.5); MEAN CORPUSCULAR VOLUME 96.2 fl (80.0-96.0); PLATELET COUNT, AUTOMATED 271 10^3/uL (150-450); RED BLOOD COUNT 4.22 10^6/uL (4.30-6.10); WHITE BLOOD COUNT 14.4 10^3/uL (4.0-10.0)
[2023-05-16 05:12] LABS: ALBUMIN 2.4 G/DL (3.2-5.2); ALKALINE PHOSPHATASE 81 U/L (46-116); ALT/SGPT 14 U/L (7.0-40); AST/SGOT 25 U/L (<34); BILIRUBIN,TOTAL 0.2 MG/DL (0.3-1.2); BLOOD UREA NITROGEN 50 MG/DL (9-23); CALCIUM LEVEL 8.9 MG/DL (8.5-10.1); CARBON DIOXIDE LEVEL 36 MMOL/L (20-31); CHLORIDE LEVEL 107 MMOL/L (98-107); CREATININE FOR GFR 1.04 MG/DL (0.70-1.30); GLOMERULAR FILTRATION RATE > 60.0 (>56); GLUCOSE, FASTING 129 MG/DL (60-100); POTASSIUM SERUM 4.9 MMOL/L (3.5-5.1); SODIUM LEVEL 147 MMOL/L (136-145); TOTAL PROTEIN 6.2 G/DL (5.7-8.2)
[2023-05-16 05:55] LABS: ATYPICAL LYMPH 7 % (0-5); HYPOCHROMASIA 1+; LYMPHOCYTES 4 % (16-44); METAMYELOCYTES 2 % (0-0); MONOCYTES 9 % (0-5); NEUTROPHILS 62 % (28-66); PLATELET ESTIMATE NORMAL (NORMAL)
[2023-05-16] MEDS: methylPREDNISolone 125MG 2ML VIAL IV SCH ×3 (06:02→21:35)
[2023-05-16] MEDS: HEPARIN SOD (PORCINE) 5000UNITS/ML 1ML VIAL/SYRINGE SQ SCH ×3 (06:02→21:35)
[2023-05-16] MEDS: D5W/0.45% SODIUM CHLORIDE 1,000 ML IV SCH ×2 (10:36→20:01)
[2023-05-16] MEDS: LEVOTHYROXINE 100MCG (0.1MG) 5ML SDV PF (SOLUTION FORM) IV SCH (10:36)
[2023-05-16 15:25] LABS: VENOUS BASE EXCESS 7.8 (-2.0-2.0); VENOUS HCO3 37.1 MMOL/L (23.0-27.0); VENOUS O2 SATURATION 99.2 % (60.0-80.0); VENOUS PARTIAL PRESSURE CO2 76.9 mmHg (38.0-50.0); VENOUS PARTIAL PRESSURE O2 195.6 mmHg (30.0-50.0); VENOUS PH 7.301 UNITS (7.330-7.430); VENOUS STANDARD HCO3 31.7 MMOL/L; VENOUS TOTAL CO2 39.4 MMOL/L (24.0-28.0)
[2023-05-16] MEDS ORDERED: MIDAZOLAM 5MG/ML 1ML VIAL As Ordered ONE (17:28)
[2023-05-16] MEDS ORDERED: MIDAZOLAM 5MG/ML 1ML VIAL IV STA (17:38)
[2023-05-16] MEDS ORDERED: ROCURONIUM BROMIDE 50MG/5ML VIAL IV STA (17:38)
[2023-05-16] MEDS ORDERED: PROPOFOL 1,000 MG/100 ML VIAL As Ordered ONE (17:39)
[2023-05-16] MEDS ORDERED: propofoL 1,000 MG in IV 1 EA IV SCH (17:40)
[2023-05-16] MEDS: AZITHROMYCIN INJ 500 MG, VIAL MATE ADAPTER 1 EACH in NS 250 ML IV SCH (18:17)
[2023-05-16] MEDS: MIDAZOLAM 100MG/100ML-0.9%NACL 100 MG in IV 1 EA IV SCH (18:27)
[2023-05-16] MEDS ORDERED: FENTANYL DRIP LOCK BOX KEY 1 EACH XX PRN (18:40)
[2023-05-16] MEDS ORDERED: NS 1,000 ML IV ONE (19:00)
[2023-05-16 19:07] LABS: VENOUS HCO3 34.5 MMOL/L (23.0-27.0); VENOUS O2 SATURATION 99.2 % (60.0-80.0); VENOUS PARTIAL PRESSURE CO2 51.4 mmHg (38.0-50.0); VENOUS PARTIAL PRESSURE O2 184.9 mmHg (30.0-50.0); VENOUS PH 7.445 UNITS (7.330-7.430); VENOUS STANDARD HCO3 32.9 MMOL/L; VENOUS TOTAL CO2 36.1 MMOL/L (24.0-28.0)
[2023-05-16] MEDS: fentaNYL CITRATE/NaCl 1,000 MCG in IV 1 EA IV SCH (19:27)
[2023-05-17] VITALS (99 sets, daily range): BP systolic 93–150; BP diastolic 60–82; TEMP 97.8–98.9; O2SAT 94–99
[2023-05-17] MEDS: IPRATROPIUM 0.5MG/ALBUTEROL 2.5MG INH SOL UD 3ML (DUONEB) NEB SCH ×6 (00:11→23:30)
[2023-05-17 05:14] LABS: HEMATOCRIT 34.1 % (42.0-52.0); HEMOGLOBIN 10.6 g/dl (13.5-17.5); MEAN CORPUSCULAR HEMOGLOBIN 29.5 pg (27.0-33.0); MEAN CORPUSCULAR HGB CONC 31.1 g/dl (32.0-36.5); PLATELET COUNT, AUTOMATED 216 10^3/uL (150-450); RED BLOOD COUNT 3.59 10^6/uL (4.30-6.10); WHITE BLOOD COUNT 8.8 10^3/uL (4.0-10.0)
[2023-05-17 05:41] LABS: ATYPICAL LYMPH 1 % (0-5); LYMPHOCYTES 12 % (16-44); METAMYELOCYTES 1 % (0-0); MONOCYTES 6 % (0-5); MYELOCYTES 4 % (0-0); NEUTROPHILS 74 % (28-66)
[2023-05-17 05:42] LABS: PLATELET ESTIMATE NORMAL (NORMAL)
[2023-05-17 05:43] LABS: HYPOCHROMASIA 1+
[2023-05-17 05:44] LABS: ALKALINE PHOSPHATASE 66 U/L (46-116); ALT/SGPT 14 U/L (7.0-40); AST/SGOT 23 U/L (<34); BILIRUBIN,TOTAL < 0.2 MG/DL (0.3-1.2); BLOOD UREA NITROGEN 35 MG/DL (9-23); CALCIUM LEVEL 8.6 MG/DL (8.5-10.1); CARBON DIOXIDE LEVEL 34 MMOL/L (20-31); CHLORIDE LEVEL 111 MMOL/L (98-107); CREATININE FOR GFR 0.91 MG/DL (0.70-1.30); GLOMERULAR FILTRATION RATE > 60.0 (>56); GLUCOSE, FASTING 207 MG/DL (60-100); POTASSIUM SERUM 3.9 MMOL/L (3.5-5.1); SODIUM LEVEL 151 MMOL/L (136-145); TOTAL PROTEIN 5.3 G/DL (5.7-8.2)
[2023-05-17] MEDS: D5W/0.45% SODIUM CHLORIDE 1,000 ML IV SCH ×2 (05:53→23:12)
[2023-05-17] MEDS: methylPREDNISolone 125MG 2ML VIAL IV SCH ×3 (05:53→22:20)
[2023-05-17] MEDS: HEPARIN SOD (PORCINE) 5000UNITS/ML 1ML VIAL/SYRINGE SQ SCH ×3 (05:53→22:20)
[2023-05-17] MEDS: MIDAZOLAM 100MG/100ML-0.9%NACL 100 MG in IV 1 EA IV SCH (07:12)
[2023-05-17 08:19] LABS: VENOUS BASE EXCESS 7.1 (-2.0-2.0); VENOUS O2 SATURATION 99.4 % (60.0-80.0); VENOUS PARTIAL PRESSURE CO2 41.1 mmHg (38.0-50.0); VENOUS PARTIAL PRESSURE O2 280.1 mmHg (30.0-50.0); VENOUS PH 7.495 UNITS (7.330-7.430); VENOUS TOTAL CO2 32.2 MMOL/L (24.0-28.0)
[2023-05-17] MEDS ORDERED: VERAPAMIL 120MG SR TAB PO SCH (09:00)
[2023-05-17] MEDS ORDERED: PARoxetine 10MG TABLET PO SCH (09:00)
[2023-05-17] MEDS: PANTOPRAZOLE 40MG VIAL IV SCH (09:05)
[2023-05-17] MEDS: LEVOTHYROXINE 100MCG (0.1MG) 5ML SDV PF (SOLUTION FORM) IV SCH (09:05)
[2023-05-17] MEDS: PARoxetine 10MG/5ML SUSP ORAL SYRINGE *DRAW UP EXACT DOSE GT SCH (10:18)
[2023-05-17] MEDS: fentaNYL CITRATE/NaCl 1,000 MCG in IV 1 EA IV SCH (11:50)
[2023-05-17] MEDS: VERAPAMIL 80MG TABLET PO SCH ×2 (14:07→22:20)
[2023-05-17] MEDS: AZITHROMYCIN INJ 500 MG, VIAL MATE ADAPTER 1 EACH in NS 250 ML IV SCH (17:56)
[2023-05-18] VITALS (36 sets, daily range): BP systolic 112–144; BP diastolic 64–86; TEMP 98.2–100.3; O2SAT 92–98
[2023-05-18] MEDS: IPRATROPIUM 0.5MG/ALBUTEROL 2.5MG INH SOL UD 3ML (DUONEB) NEB SCH ×6 (03:07→23:21)
[2023-05-18 04:56] LABS: VENOUS BASE EXCESS 6.3 (-2.0-2.0); VENOUS HCO3 30.7 MMOL/L (23.0-27.0); VENOUS O2 SATURATION 98.6 % (60.0-80.0); VENOUS PARTIAL PRESSURE CO2 43.4 mmHg (38.0-50.0); VENOUS PARTIAL PRESSURE O2 124.9 mmHg (30.0-50.0); VENOUS PH 7.467 UNITS (7.330-7.430); VENOUS STANDARD HCO3 30.2 MMOL/L
[2023-05-18 05:02] LABS: HEMATOCRIT 34.6 % (42.0-52.0); HEMOGLOBIN 10.8 g/dl (13.5-17.5); MEAN CORPUSCULAR HEMOGLOBIN 29.2 pg (27.0-33.0); MEAN CORPUSCULAR HGB CONC 31.2 g/dl (32.0-36.5); MEAN CORPUSCULAR VOLUME 93.5 fl (80.0-96.0); PLATELET COUNT, AUTOMATED 231 10^3/uL (150-450); WHITE BLOOD COUNT 11.6 10^3/uL (4.0-10.0)
[2023-05-18 05:26] LABS: ALBUMIN 2.1 G/DL (3.2-5.2); ALKALINE PHOSPHATASE 68 U/L (46-116); ALT/SGPT 13 U/L (7.0-40); AST/SGOT 21 U/L (<34); BILIRUBIN,TOTAL 0.2 MG/DL (0.3-1.2); BLOOD UREA NITROGEN 39 MG/DL (9-23); CALCIUM LEVEL 8.6 MG/DL (8.5-10.1); CARBON DIOXIDE LEVEL 32 MMOL/L (20-31); CHLORIDE LEVEL 111 MMOL/L (98-107); CREATININE FOR GFR 1.02 MG/DL (0.70-1.30); GLOMERULAR FILTRATION RATE > 60.0 (>56); GLUCOSE, FASTING 172 MG/DL (60-100); SODIUM LEVEL 148 MMOL/L (136-145); TOTAL PROTEIN 5.3 G/DL (5.7-8.2)
[2023-05-18 05:39] LABS: ATYPICAL LYMPH 4 % (0-5); LYMPHOCYTES 11 % (16-44); MONOCYTES 8 % (0-5); MYELOCYTES 4 % (0-0); NEUTROPHILS 71 % (28-66); PROMYELOCYTES 1 % (0-0)
[2023-05-18 05:40] LABS: HYPOCHROMASIA 1+; PLATELET ESTIMATE NORMAL (NORMAL)
[2023-05-18] MEDS: VERAPAMIL 80MG TABLET PO SCH ×3 (05:51→21:18)
[2023-05-18] MEDS: HEPARIN SOD (PORCINE) 5000UNITS/ML 1ML VIAL/SYRINGE SQ SCH ×3 (05:51→21:18)
[2023-05-18] MEDS: methylPREDNISolone 125MG 2ML VIAL IV SCH ×3 (05:51→21:18)
[2023-05-18] MEDS: dexmedeTOMidine 200 MCG in IV 1 EA IV SCH ×3 (06:39→22:59)
[2023-05-18] MEDS: LEVOTHYROXINE 100MCG (0.1MG) 5ML SDV PF (SOLUTION FORM) IV SCH (08:12)
[2023-05-18] MEDS: PANTOPRAZOLE 40MG VIAL IV SCH (08:12)
[2023-05-18] MEDS: D5W/0.45% SODIUM CHLORIDE 1,000 ML IV SCH ×2 (09:07→18:40)
[2023-05-18] MEDS: PARoxetine 10MG/5ML SUSP ORAL SYRINGE *DRAW UP EXACT DOSE GT SCH (10:10)
[2023-05-18] MEDS: cefTRIAXone SOD 2 GM in D5W MINI-BAG PLUS 50 ML IV SCH (18:24)
[2023-05-18] MEDS: fentaNYL CITRATE/NaCl 1,000 MCG in IV 1 EA IV SCH (19:43)
[2023-05-19] VITALS (25 sets, daily range): BP systolic 111–160; BP diastolic 70–94; TEMP 96.9–98.2; O2SAT 88–96
[2023-05-19] MEDS: D5W/0.45% SODIUM CHLORIDE 1,000 ML IV SCH ×2 (00:53→07:29)
[2023-05-19] MEDS: dexmedeTOMidine 200 MCG in IV 1 EA IV SCH ×2 (02:43→07:30)
[2023-05-19] MEDS: IPRATROPIUM 0.5MG/ALBUTEROL 2.5MG INH SOL UD 3ML (DUONEB) NEB SCH ×6 (03:21→23:07)
[2023-05-19 04:51] LABS: HEMATOCRIT 38.7 % (42.0-52.0); HEMOGLOBIN 11.4 g/dl (13.5-17.5); MEAN CORPUSCULAR HEMOGLOBIN 27.9 pg (27.0-33.0); MEAN CORPUSCULAR HGB CONC 29.5 g/dl (32.0-36.5); MEAN CORPUSCULAR VOLUME 94.9 fl (80.0-96.0); PLATELET COUNT, AUTOMATED 211 10^3/uL (150-450); RED BLOOD COUNT 4.08 10^6/uL (4.30-6.10); WHITE BLOOD COUNT 12.9 10^3/uL (4.0-10.0)
[2023-05-19] MEDS: fentaNYL CITRATE/NaCl 1,000 MCG in IV 1 EA IV SCH (05:01)
[2023-05-19 05:27] LABS: ALBUMIN 2.2 G/DL (3.2-5.2); ALKALINE PHOSPHATASE 68 U/L (46-116); ALT/SGPT 13 U/L (7.0-40); AST/SGOT 14 U/L (<34); BILIRUBIN,TOTAL 0.2 MG/DL (0.3-1.2); BLOOD UREA NITROGEN 36 MG/DL (9-23); CALCIUM LEVEL 8.2 MG/DL (8.5-10.1); CARBON DIOXIDE LEVEL 31 MMOL/L (20-31); CHLORIDE LEVEL 111 MMOL/L (98-107); CREATININE FOR GFR 0.94 MG/DL (0.70-1.30); GLOMERULAR FILTRATION RATE > 60.0 (>56); GLUCOSE, FASTING 155 MG/DL (60-100); MAGNESIUM LEVEL 2.5 MG/DL (1.8-2.4); PHOSPHORUS LEVEL 4.7 MG/DL (2.5-4.9); POTASSIUM SERUM 4.7 MMOL/L (3.5-5.1); SODIUM LEVEL 145 MMOL/L (136-145); TOTAL PROTEIN 5.7 G/DL (5.7-8.2)
[2023-05-19 05:51] LABS: ATYPICAL LYMPH 5 % (0-5); HYPOCHROMASIA 1+; LYMPHOCYTES 12 % (16-44); METAMYELOCYTES 1 % (0-0); MONOCYTES 4 % (0-5); MYELOCYTES 3 % (0-0); NEUTROPHILS 73 % (28-66); PLATELET ESTIMATE NORMAL (NORMAL)
[2023-05-19] MEDS: methylPREDNISolone 125MG 2ML VIAL IV SCH ×2 (06:05→17:34)
[2023-05-19] MEDS: HEPARIN SOD (PORCINE) 5000UNITS/ML 1ML VIAL/SYRINGE SQ SCH ×3 (06:05→21:08)
[2023-05-19] MEDS: VERAPAMIL 80MG TABLET PO SCH ×3 (06:05→21:09)
[2023-05-19] MEDS: LEVOTHYROXINE 100MCG (0.1MG) 5ML SDV PF (SOLUTION FORM) IV SCH (09:03)
[2023-05-19] MEDS: PARoxetine 10MG/5ML SUSP ORAL SYRINGE *DRAW UP EXACT DOSE GT SCH (09:04)
[2023-05-19] MEDS: PANTOPRAZOLE 40MG VIAL IV SCH (09:04)
[2023-05-19] MEDS: ALBUTEROL SULFATE 2.5MG/0.5ML INH NEB SOLN NEB PRN (09:48)
[2023-05-19] MEDS ORDERED: FUROSEMIDE 20MG/2ML VIAL IV ONE ×2 (14:20→23:00)
[2023-05-19] MEDS ORDERED: methylPREDNISolone 125MG 2ML VIAL IV ONE (15:15)
[2023-05-19] MEDS ORDERED: ALPRAZolam 0.25 MG TAB PO PRN (15:40)
[2023-05-19] MEDS: cefTRIAXone SOD 2 GM in D5W MINI-BAG PLUS 50 ML IV SCH (18:44)
[2023-05-20] VITALS (30 sets, daily range): BP systolic 130–178; BP diastolic 72–97; TEMP 97.2–98.6; O2SAT 86–98
[2023-05-20] MEDS: IPRATROPIUM 0.5MG/ALBUTEROL 2.5MG INH SOL UD 3ML (DUONEB) NEB SCH ×6 (03:07→23:27)
[2023-05-20 03:58] LABS: VENOUS BASE EXCESS 5.3 (-2.0-2.0); VENOUS HCO3 30.7 MMOL/L (23.0-27.0); VENOUS O2 SATURATION 98.9 % (60.0-80.0); VENOUS PARTIAL PRESSURE CO2 47.8 mmHg (38.0-50.0); VENOUS PARTIAL PRESSURE O2 147.9 mmHg (30.0-50.0); VENOUS PH 7.425 UNITS (7.330-7.430); VENOUS STANDARD HCO3 29.3 MMOL/L; VENOUS TOTAL CO2 32.1 MMOL/L (24.0-28.0)
[2023-05-20 04:05] LABS: BASO # 0.1 10^3/uL (0.0-0.2); BASO % 0.4 % (0.0-1.0); HEMOGLOBIN 11.8 g/dl (13.5-17.5); LYMPH # 1.4 10^3/uL (1.5-5.0); LYMPH % 9.2 % (24.0-44.0); MEAN CORPUSCULAR HEMOGLOBIN 29.1 pg (27.0-33.0); MEAN CORPUSCULAR HGB CONC 31.1 g/dl (32.0-36.5); MEAN CORPUSCULAR VOLUME 93.8 fl (80.0-96.0); MONO # 0.5 10^3/uL (0.0-0.8); MONO % 3.6 % (2.0-8.0); NEUTROPHILS # 11.4 10^3/uL (1.5-8.5); NEUTROPHILS % 77.2 % (36.0-66.0); PLATELET COUNT, AUTOMATED 165 10^3/uL (150-450); RED BLOOD COUNT 4.05 10^6/uL (4.30-6.10); WHITE BLOOD COUNT 14.8 10^3/uL (4.0-10.0)
[2023-05-20 04:27] LABS: ALBUMIN 2.2 G/DL (3.2-5.2); ALKALINE PHOSPHATASE 67 U/L (46-116); ALT/SGPT 15 U/L (7.0-40); AST/SGOT 19 U/L (<34); BILIRUBIN,TOTAL 0.2 MG/DL (0.3-1.2); BLOOD UREA NITROGEN 36 MG/DL (9-23); CALCIUM LEVEL 8.2 MG/DL (8.5-10.1); CARBON DIOXIDE LEVEL 34 MMOL/L (20-31); CHLORIDE LEVEL 106 MMOL/L (98-107); CREATININE FOR GFR 0.93 MG/DL (0.70-1.30); GLOMERULAR FILTRATION RATE > 60.0 (>56); GLUCOSE, FASTING 109 MG/DL (60-100); MAGNESIUM LEVEL 2.3 MG/DL (1.8-2.4); PHOSPHORUS LEVEL 5.3 MG/DL (2.5-4.9); POTASSIUM SERUM 4.6 MMOL/L (3.5-5.1); SODIUM LEVEL 144 MMOL/L (136-145); TOTAL PROTEIN 5.6 G/DL (5.7-8.2)
[2023-05-20] MEDS: VERAPAMIL 80MG TABLET PO SCH ×3 (06:10→21:17)
[2023-05-20] MEDS: methylPREDNISolone 125MG 2ML VIAL IV SCH ×2 (06:11→18:08)
[2023-05-20] MEDS: HEPARIN SOD (PORCINE) 5000UNITS/ML 1ML VIAL/SYRINGE SQ SCH ×3 (06:11→21:17)
[2023-05-20] MEDS: PARoxetine 10MG/5ML SUSP ORAL SYRINGE *DRAW UP EXACT DOSE GT SCH (08:27)
[2023-05-20] MEDS: PANTOPRAZOLE 40MG VIAL IV SCH (08:27)
[2023-05-20] MEDS: LEVOTHYROXINE 100MCG (0.1MG) 5ML SDV PF (SOLUTION FORM) IV SCH (08:27)
[2023-05-20] MEDS: ALBUTEROL SULFATE 2.5MG/0.5ML INH NEB SOLN NEB PRN (09:03)
[2023-05-20] MEDS ORDERED: guaiFENesin ER TABLET 600 MG TAB PO SCH (13:15)
[2023-05-20] MEDS ORDERED: guaiFENesin SYRUP 200MG 10ML UDC PO PRN (13:50)
[2023-05-20] MEDS: cefTRIAXone SOD 2 GM in D5W MINI-BAG PLUS 50 ML IV SCH (18:08)
[2023-05-21] VITALS (13 sets, daily range): BP systolic 126–158; BP diastolic 67–83; TEMP 97.3–98.8; O2SAT 85–94
[2023-05-21] MEDS: IPRATROPIUM 0.5MG/ALBUTEROL 2.5MG INH SOL UD 3ML (DUONEB) NEB SCH ×6 (03:14→23:16)
[2023-05-21 05:28] LABS: VENOUS BASE EXCESS 5.3 (-2.0-2.0); VENOUS HCO3 31.1 MMOL/L (23.0-27.0); VENOUS PARTIAL PRESSURE CO2 50.5 mmHg (38.0-50.0); VENOUS PARTIAL PRESSURE O2 61.6 mmHg (30.0-50.0); VENOUS PH 7.408 UNITS (7.330-7.430); VENOUS STANDARD HCO3 29.1 MMOL/L; VENOUS TOTAL CO2 32.7 MMOL/L (24.0-28.0)
[2023-05-21 05:33] LABS: HEMATOCRIT 39.1 % (42.0-52.0); HEMOGLOBIN 12.4 g/dl (13.5-17.5); MEAN CORPUSCULAR HEMOGLOBIN 28.6 pg (27.0-33.0); MEAN CORPUSCULAR HGB CONC 31.7 g/dl (32.0-36.5); MEAN CORPUSCULAR VOLUME 90.3 fl (80.0-96.0); PLATELET COUNT, AUTOMATED 140 10^3/uL (150-450); RED BLOOD COUNT 4.33 10^6/uL (4.30-6.10); WHITE BLOOD COUNT 10.9 10^3/uL (4.0-10.0)
[2023-05-21 05:52] LABS: ATYPICAL LYMPH 5 % (0-5); LYMPHOCYTES 11 % (16-44); MONOCYTES 4 % (0-5); NEUTROPHILS 79 % (28-66); PLATELET ESTIMATE NORMAL (NORMAL); POLYCHROMASIA 1+
[2023-05-21] MEDS: methylPREDNISolone 125MG 2ML VIAL IV SCH (05:56)
[2023-05-21] MEDS: VERAPAMIL 80MG TABLET PO SCH (05:56)
[2023-05-21] MEDS: HEPARIN SOD (PORCINE) 5000UNITS/ML 1ML VIAL/SYRINGE SQ SCH (05:57)
[2023-05-21 06:02] LABS: ALBUMIN 2.3 G/DL (3.2-5.2); ALKALINE PHOSPHATASE 67 U/L (46-116); ALT/SGPT 15 U/L (7.0-40); AST/SGOT 15 U/L (<34); BILIRUBIN,TOTAL 0.3 MG/DL (0.3-1.2); BLOOD UREA NITROGEN 38 MG/DL (9-23); CALCIUM LEVEL 8.5 MG/DL (8.5-10.1); CARBON DIOXIDE LEVEL 33 MMOL/L (20-31); CHLORIDE LEVEL 104 MMOL/L (98-107); CREATININE FOR GFR 0.84 MG/DL (0.70-1.30); GLOMERULAR FILTRATION RATE > 60.0 (>56); GLUCOSE, FASTING 137 MG/DL (60-100); POTASSIUM SERUM 4.8 MMOL/L (3.5-5.1); SODIUM LEVEL 141 MMOL/L (136-145); TOTAL PROTEIN 5.6 G/DL (5.7-8.2)
[2023-05-21] MEDS: BUDESONIDE 0.25 MG/2 ML INHALATION SUSPENSION INH SCH ×2 (08:00→19:10)
[2023-05-21] MEDS ORDERED: BUDESONIDE 0.25 MG/2 ML INHALATION SUSPENSION INH SCH (08:00)
[2023-05-21] MEDS ORDERED: DOCUSATE SODIUM 100MG CAPSULE PO SCH (09:00)
[2023-05-21] MEDS: PARoxetine 10MG/5ML SUSP ORAL SYRINGE *DRAW UP EXACT DOSE GT SCH (09:24)
[2023-05-21] MEDS: guaiFENesin SYRUP 200MG 10ML UDC PO SCH ×4 (09:25→23:28)
[2023-05-21] MEDS: LEVOTHYROXINE 100MCG (0.1MG) 5ML SDV PF (SOLUTION FORM) IV SCH (09:26)
[2023-05-21] MEDS: PANTOPRAZOLE 40MG VIAL IV SCH (09:40)
[2023-05-21] MEDS: amLODIPine 5 MG TAB PO SCH (09:41)
[2023-05-21] MEDS: LOSARTAN 50MG TABLET PO SCH (09:41)
[2023-05-21] MEDS: FORMOTEROL FUMARATE 20 MCG/2 ML INHALATION SOLUTION (PERFOROMIST) INH SCH ×3 (11:22→19:07)
[2023-05-21] MEDS: MIRALAX *UNIT DOSE* 17GM PACKET PO SCH (11:59)
[2023-05-21] MEDS: GLYCOPYRROLATE INJ 0.2 MG/ML 2 ML VIAL NEB SCH ×2 (13:58→19:08)
[2023-05-21] MEDS ORDERED: VERAPAMIL 120MG SR TAB PO ONE ×2 (14:00)
[2023-05-21] MEDS ORDERED: MOM 30ML SUSPENSION UDC PO PRN (14:20)
[2023-05-21] MEDS ORDERED: FUROSEMIDE 20MG/2ML VIAL IV ONE (14:45)
[2023-05-21] MEDS: cefTRIAXone SOD 2 GM in D5W MINI-BAG PLUS 50 ML IV SCH (18:17)
[2023-05-21] MEDS: SENOKOT S TAB PO SCH (20:14)
[2023-05-21] MEDS ORDERED: ROSUVASTATIN 10 MG TAB (CRESTOR) PO SCH (21:00)
[2023-05-22] MEDS: IPRATROPIUM 0.5MG/ALBUTEROL 2.5MG INH SOL UD 3ML (DUONEB) NEB SCH ×5 (03:39→21:54)
[2023-05-22 04:15] VITALS: BP 132/75; TEMP 97.2; O2SAT 92
[2023-05-22] MEDS: LEVOTHYROXINE 25MCG TABLET (0.025MG) PO SCH (05:22)
[2023-05-22] MEDS: guaiFENesin SYRUP 200MG 10ML UDC PO SCH ×3 (05:23→18:00)
[2023-05-22] MEDS: FORMOTEROL FUMARATE 20 MCG/2 ML INHALATION SOLUTION (PERFOROMIST) INH SCH ×2 (07:18→20:00)
[2023-05-22] MEDS: GLYCOPYRROLATE INJ 0.2 MG/ML 2 ML VIAL NEB SCH (07:19)
[2023-05-22] MEDS: BUDESONIDE 0.25 MG/2 ML INHALATION SUSPENSION INH SCH ×2 (07:19→21:54)
[2023-05-22 08:00] VITALS: BP 135/72; TEMP 98.7; O2SAT 92
[2023-05-22] MEDS ORDERED: PARoxetine 10MG TABLET PO SCH (09:00)
[2023-05-22] MEDS ORDERED: OMEPRAZOLE 20MG CAP PO SCH (09:00)
[2023-05-22] MEDS ORDERED: predniSONE 20 MG TAB PO SCH (09:00)
[2023-05-22] MEDS ORDERED: ENOXAPARIN 40MG/0.4ML SYRINGE (J1650 PER 10MG) SC SCH (09:00)
[2023-05-22] MEDS ORDERED: VERAPAMIL 120MG SR TAB PO SCH (09:00)
[2023-05-22] MEDS: SENOKOT S TAB PO SCH (09:59)
[2023-05-22] MEDS: MIRALAX *UNIT DOSE* 17GM PACKET PO SCH (09:59)
[2023-05-22] MEDS: LOSARTAN 50MG TABLET PO SCH (10:00)
[2023-05-22] MEDS: amLODIPine 5 MG TAB PO SCH (10:00)
[2023-05-22 12:00] VITALS: BP 135/64; TEMP 97.1; O2SAT 91
[2023-05-22] MEDS ORDERED: FUROSEMIDE 40MG/4ML VIAL IV ONE (12:45)
[2023-05-22] MEDS ORDERED: BISACODYL 10MG SUPP PR PRN (14:40)
[2023-05-22] MEDS ORDERED: FLEET ENEMA PR PRN (14:40)
[2023-05-22 16:00] VITALS: BP 131/84; TEMP 97.8; O2SAT 92
[2023-05-22] MEDS: cefTRIAXone SOD 2 GM in D5W MINI-BAG PLUS 50 ML IV SCH (18:56)
[2023-05-22 19:41] VITALS: BP 135/85; TEMP 98.1; O2SAT 90
[2023-05-22] MEDS ORDERED: NS 1,000 ML IV SCH (20:35)
[2023-05-22] MEDS: PIPERACILLIN/TAZOBACTAM SOD 3.375 GM in D5W MINI-BAG PLUS 50 ML IV SCH (21:40)
[2023-05-22 21:58] LABS: BASO # 0.1 10^3/uL (0.0-0.2); BASO % 0.2 % (0.0-1.0); HEMOGLOBIN 13.6 g/dl (13.5-17.5); LYMPH # 1.2 10^3/uL (1.5-5.0); LYMPH % 4.5 % (24.0-44.0); MEAN CORPUSCULAR HEMOGLOBIN 29.4 pg (27.0-33.0); MEAN CORPUSCULAR HGB CONC 32.4 g/dl (32.0-36.5); MEAN CORPUSCULAR VOLUME 90.7 fl (80.0-96.0); MONO % 3.8 % (2.0-8.0); NEUTROPHILS # 23.2 10^3/uL (1.5-8.5); NEUTROPHILS % 89.9 % (36.0-66.0); PLATELET COUNT, AUTOMATED 127 10^3/uL (150-450); RED BLOOD COUNT 4.63 10^6/uL (4.30-6.10); WHITE BLOOD COUNT 25.8 10^3/uL (4.0-10.0)
[2023-05-22 22:30] LABS: ALBUMIN 2.4 G/DL (3.2-5.2); ALKALINE PHOSPHATASE 71 U/L (46-116); ALT/SGPT 27 U/L (7.0-40); AST/SGOT 20 U/L (<34); BILIRUBIN,TOTAL 0.5 MG/DL (0.3-1.2); BLOOD UREA NITROGEN 34 MG/DL (9-23); CALCIUM LEVEL 8.3 MG/DL (8.5-10.1); CARBON DIOXIDE LEVEL 36 MMOL/L (20-31); CHLORIDE LEVEL 97 MMOL/L (98-107); CREATININE FOR GFR 0.81 MG/DL (0.70-1.30); GLOMERULAR FILTRATION RATE > 60.0 (>56); GLUCOSE, FASTING 95 MG/DL (60-100); POTASSIUM SERUM 4.8 MMOL/L (3.5-5.1); SODIUM LEVEL 138 MMOL/L (136-145); TOTAL PROTEIN 5.7 G/DL (5.7-8.2)
[2023-05-22 23:46] VITALS: BP 133/85; TEMP 97.2; O2SAT 91
[2023-05-23] VITALS (28 sets, daily range): BP systolic 106–162; BP diastolic 63–87; TEMP 97.2–98.8; O2SAT 88–99
[2023-05-23] MEDS: IPRATROPIUM 0.5MG/ALBUTEROL 2.5MG INH SOL UD 3ML (DUONEB) NEB SCH ×7 (00:29→23:16)
[2023-05-23] MEDS ORDERED: hydrALAZINE 20MG/ML 1ML VIAL IV PRN (04:45)
[2023-05-23] MEDS ORDERED: HYDROMORPHONE HCL 0.5 MG/ 0.5 ML SYRINGE IV PRN (04:50)
[2023-05-23] MEDS: LEVOTHYROXINE 25MCG TABLET (0.025MG) PO SCH (06:16)
[2023-05-23] MEDS: PIPERACILLIN/TAZOBACTAM SOD 3.375 GM in D5W MINI-BAG PLUS 50 ML IV SCH (06:16)
[2023-05-23 06:28] LABS: HEMOGLOBIN 11.9 g/dl (13.5-17.5); MEAN CORPUSCULAR HEMOGLOBIN 28.8 pg (27.0-33.0); MEAN CORPUSCULAR HGB CONC 31.3 g/dl (32.0-36.5); PLATELET COUNT, AUTOMATED 112 10^3/uL (150-450); RED BLOOD COUNT 4.13 10^6/uL (4.30-6.10); WHITE BLOOD COUNT 22.5 10^3/uL (4.0-10.0)
[2023-05-23 06:39] LABS: ALBUMIN 2.5 G/DL (3.2-5.2); ALKALINE PHOSPHATASE 68 U/L (46-116); ALT/SGPT 25 U/L (7.0-40); AST/SGOT 19 U/L (<34); BILIRUBIN,TOTAL 0.5 MG/DL (0.3-1.2); BLOOD UREA NITROGEN 31 MG/DL (9-23); CALCIUM LEVEL 8.5 MG/DL (8.5-10.1); CARBON DIOXIDE LEVEL 38 MMOL/L (20-31); CHLORIDE LEVEL 100 MMOL/L (98-107); CREATININE FOR GFR 0.82 MG/DL (0.70-1.30); GLOMERULAR FILTRATION RATE > 60.0 (>56); GLUCOSE, FASTING 90 MG/DL (60-100); POTASSIUM SERUM 4.4 MMOL/L (3.5-5.1); SODIUM LEVEL 141 MMOL/L (136-145); TOTAL PROTEIN 5.7 G/DL (5.7-8.2)
[2023-05-23] MEDS: BUDESONIDE 0.25 MG/2 ML INHALATION SUSPENSION INH SCH ×2 (07:47→19:40)
[2023-05-23] MEDS: FORMOTEROL FUMARATE 20 MCG/2 ML INHALATION SOLUTION (PERFOROMIST) INH SCH ×2 (07:47→19:40)
[2023-05-23 08:43] LABS: INR 1.08; PARTIAL THROMBOPLASTIN TIME 26.3 SECONDS (24.8-34.2); PROTHROMBIN TIME 13.6 SECONDS (12.5-14.5)
[2023-05-23] MEDS ORDERED: RIVAROXABAN 10MG TAB (XARELTO) PO SCH (09:00)
[2023-05-23] MEDS: CIPROFLOXACIN 400 MG in IV 1 EA IV SCH ×2 (10:58→21:11)
[2023-05-23] MEDS: metroNIDAZOLE 500 MG in IV 1 EA IV SCH ×2 (11:57→18:52)
[2023-05-23] MEDS ORDERED: LORazepam 2 MG/ML 1ML VIAL IV PRN (14:00)
[2023-05-24] VITALS (20 sets, daily range): BP systolic 122–153; BP diastolic 69–91; TEMP 97.3–99.8; O2SAT 88–98
[2023-05-24] MEDS: IPRATROPIUM 0.5MG/ALBUTEROL 2.5MG INH SOL UD 3ML (DUONEB) NEB SCH ×6 (03:43→23:13)
[2023-05-24] MEDS: metroNIDAZOLE 500 MG in IV 1 EA IV SCH (04:04)
[2023-05-24 05:33] LABS: BASO % 0.1 % (0.0-1.0); EOS % 0.2 % (0.0-3.0); HEMATOCRIT 36.3 % (42.0-52.0); HEMOGLOBIN 11.1 g/dl (13.5-17.5); LYMPH # 1.1 10^3/uL (1.5-5.0); LYMPH % 4.8 % (24.0-44.0); MEAN CORPUSCULAR HEMOGLOBIN 28.4 pg (27.0-33.0); MEAN CORPUSCULAR HGB CONC 30.6 g/dl (32.0-36.5); MEAN CORPUSCULAR VOLUME 92.8 fl (80.0-96.0); MONO # 1.3 10^3/uL (0.0-0.8); MONO % 5.5 % (2.0-8.0); NEUTROPHILS # 20.5 10^3/uL (1.5-8.5); NEUTROPHILS % 88.4 % (36.0-66.0); PLATELET COUNT, AUTOMATED 124 10^3/uL (150-450); RED BLOOD COUNT 3.91 10^6/uL (4.30-6.10); WHITE BLOOD COUNT 23.2 10^3/uL (4.0-10.0)
[2023-05-24] MEDS: LEVOTHYROXINE 25MCG TABLET (0.025MG) PO SCH (05:41)
[2023-05-24 06:03] LABS: BLOOD UREA NITROGEN 22 MG/DL (9-23); CALCIUM LEVEL 8.1 MG/DL (8.5-10.1); CARBON DIOXIDE LEVEL 34 MMOL/L (20-31); CHLORIDE LEVEL 100 MMOL/L (98-107); CREATININE FOR GFR 0.71 MG/DL (0.70-1.30); GLOMERULAR FILTRATION RATE > 60.0 (>56); GLUCOSE, FASTING 80 MG/DL (60-100); SODIUM LEVEL 139 MMOL/L (136-145)
[2023-05-24] MEDS: BUDESONIDE 0.25 MG/2 ML INHALATION SUSPENSION INH SCH ×2 (08:33→19:36)
[2023-05-24] MEDS: FORMOTEROL FUMARATE 20 MCG/2 ML INHALATION SOLUTION (PERFOROMIST) INH SCH ×2 (08:33→19:36)
[2023-05-24] MEDS: PIPERACILLIN/TAZOBACTAM SOD 4.5 GM in D5W MINI-BAG PLUS 50 ML IV SCH ×3 (11:08→23:11)
[2023-05-24] MEDS: ENOXAPARIN 40MG/0.4ML SYRINGE (J1650 PER 10MG) SC SCH (11:08)
[2023-05-24 11:28] LABS: C REACTIVE PROTEIN QUANTITATIV 20.2 MG/DL (<1.0)
[2023-05-24 11:37] LABS: PROCALCITONIN 0.2 ng/ml
[2023-05-25] VITALS (13 sets, daily range): BP systolic 108–135; BP diastolic 56–79; TEMP 97.9–100; O2SAT 93–98
[2023-05-25] MEDS ORDERED: ACETAMINOPHEN TAB 650MG DOSE (2X325MG) PO ONE (00:25)
[2023-05-25] MEDS: IPRATROPIUM 0.5MG/ALBUTEROL 2.5MG INH SOL UD 3ML (DUONEB) NEB SCH ×5 (03:00→20:00)
[2023-05-25 04:20] LABS: BASO % 0.1 % (0.0-1.0); EOS # 0.2 10^3/uL (0.0-0.5); EOS % 0.9 % (0.0-3.0); HEMATOCRIT 34.9 % (42.0-52.0); HEMOGLOBIN 10.9 g/dl (13.5-17.5); LYMPH # 1.2 10^3/uL (1.5-5.0); LYMPH % 7.1 % (24.0-44.0); MEAN CORPUSCULAR HEMOGLOBIN 29.5 pg (27.0-33.0); MEAN CORPUSCULAR HGB CONC 31.2 g/dl (32.0-36.5); MEAN CORPUSCULAR VOLUME 94.3 fl (80.0-96.0); MONO # 1.4 10^3/uL (0.0-0.8); MONO % 8.5 % (2.0-8.0); NEUTROPHILS # 13.5 10^3/uL (1.5-8.5); NEUTROPHILS % 82.4 % (36.0-66.0); PLATELET COUNT, AUTOMATED 163 10^3/uL (150-450); WHITE BLOOD COUNT 16.4 10^3/uL (4.0-10.0)
[2023-05-25 04:32] LABS: BLOOD UREA NITROGEN 17 MG/DL (9-23); CALCIUM LEVEL 7.5 MG/DL (8.5-10.1); CARBON DIOXIDE LEVEL 35 MMOL/L (20-31); CHLORIDE LEVEL 102 MMOL/L (98-107); CREATININE FOR GFR 0.79 MG/DL (0.70-1.30); GLOMERULAR FILTRATION RATE > 60.0 (>56); GLUCOSE, FASTING 107 MG/DL (60-100); POTASSIUM SERUM 3.7 MMOL/L (3.5-5.1); SODIUM LEVEL 140 MMOL/L (136-145)
[2023-05-25] MEDS: PIPERACILLIN/TAZOBACTAM SOD 4.5 GM in D5W MINI-BAG PLUS 50 ML IV SCH ×4 (04:44→22:49)
[2023-05-25] MEDS: LEVOTHYROXINE 25MCG TABLET (0.025MG) PO SCH (05:41)
[2023-05-25] MEDS: FORMOTEROL FUMARATE 20 MCG/2 ML INHALATION SOLUTION (PERFOROMIST) INH SCH ×2 (07:35→20:00)
[2023-05-25] MEDS: BUDESONIDE 0.25 MG/2 ML INHALATION SUSPENSION INH SCH ×2 (07:35→20:00)
[2023-05-25] MEDS: ENOXAPARIN 40MG/0.4ML SYRINGE (J1650 PER 10MG) SC SCH (08:20)
[2023-05-26] VITALS (8 sets, daily range): BP systolic 117–138; BP diastolic 70–79; TEMP 97.9–98.8; O2SAT 90–100
[2023-05-26] MEDS: IPRATROPIUM 0.5MG/ALBUTEROL 2.5MG INH SOL UD 3ML (DUONEB) NEB SCH ×7 (00:26→22:42)
[2023-05-26] MEDS: PIPERACILLIN/TAZOBACTAM SOD 4.5 GM in D5W MINI-BAG PLUS 50 ML IV SCH ×4 (05:08→21:45)
[2023-05-26] MEDS: LEVOTHYROXINE 25MCG TABLET (0.025MG) PO SCH (05:09)
[2023-05-26 06:08] LABS: BASO % 0.1 % (0.0-1.0); EOS # 0.2 10^3/uL (0.0-0.5); EOS % 1.4 % (0.0-3.0); HEMATOCRIT 37.4 % (42.0-52.0); HEMOGLOBIN 11.3 g/dl (13.5-17.5); LYMPH # 1.5 10^3/uL (1.5-5.0); LYMPH % 10.7 % (24.0-44.0); MEAN CORPUSCULAR HEMOGLOBIN 28.9 pg (27.0-33.0); MEAN CORPUSCULAR HGB CONC 30.2 g/dl (32.0-36.5); MEAN CORPUSCULAR VOLUME 95.7 fl (80.0-96.0); MONO # 1.3 10^3/uL (0.0-0.8); MONO % 8.9 % (2.0-8.0); NEUTROPHILS % 77.6 % (36.0-66.0); PLATELET COUNT, AUTOMATED 223 10^3/uL (150-450); RED BLOOD COUNT 3.91 10^6/uL (4.30-6.10); WHITE BLOOD COUNT 14.1 10^3/uL (4.0-10.0)
[2023-05-26 06:35] LABS: BLOOD UREA NITROGEN 13 MG/DL (9-23); CARBON DIOXIDE LEVEL 38 MMOL/L (20-31); CHLORIDE LEVEL 103 MMOL/L (98-107); CREATININE FOR GFR 0.71 MG/DL (0.70-1.30); GLOMERULAR FILTRATION RATE > 60.0 (>56); GLUCOSE, FASTING 110 MG/DL (60-100); SODIUM LEVEL 143 MMOL/L (136-145)
[2023-05-26] MEDS: FORMOTEROL FUMARATE 20 MCG/2 ML INHALATION SOLUTION (PERFOROMIST) INH SCH ×2 (07:16→22:36)
[2023-05-26] MEDS: BUDESONIDE 0.25 MG/2 ML INHALATION SUSPENSION INH SCH ×2 (07:16→22:39)
[2023-05-26] MEDS: ENOXAPARIN 40MG/0.4ML SYRINGE (J1650 PER 10MG) SC SCH (11:30)
[2023-05-26] MEDS: METOPROLOL TART 50 MG TAB PO SCH ×2 (11:30→21:45)
[2023-05-26] MEDS: ROSUVASTATIN 10 MG TAB (CRESTOR) PO SCH (21:45)
[2023-05-27 03:57] VITALS: O2SAT 96
[2023-05-27] MEDS: IPRATROPIUM 0.5MG/ALBUTEROL 2.5MG INH SOL UD 3ML (DUONEB) NEB SCH ×5 (04:01→20:58)
[2023-05-27] MEDS: LEVOTHYROXINE 25MCG TABLET (0.025MG) PO SCH (05:30)
[2023-05-27] MEDS: PIPERACILLIN/TAZOBACTAM SOD 4.5 GM in D5W MINI-BAG PLUS 50 ML IV SCH (05:31)
[2023-05-27 06:15] LABS: BASO % 0.1 % (0.0-1.0); EOS # 0.2 10^3/uL (0.0-0.5); HEMATOCRIT 36.5 % (42.0-52.0); HEMOGLOBIN 11.1 g/dl (13.5-17.5); LYMPH # 1.7 10^3/uL (1.5-5.0); MEAN CORPUSCULAR HEMOGLOBIN 28.8 pg (27.0-33.0); MEAN CORPUSCULAR HGB CONC 30.4 g/dl (32.0-36.5); MEAN CORPUSCULAR VOLUME 94.6 fl (80.0-96.0); MONO # 1.3 10^3/uL (0.0-0.8); MONO % 11.2 % (2.0-8.0); NEUTROPHILS # 7.9 10^3/uL (1.5-8.5); NEUTROPHILS % 70.7 % (36.0-66.0); PLATELET COUNT, AUTOMATED 251 10^3/uL (150-450); RED BLOOD COUNT 3.86 10^6/uL (4.30-6.10); WHITE BLOOD COUNT 11.2 10^3/uL (4.0-10.0)
[2023-05-27 06:40] VITALS: BP 126/78; TEMP 97; O2SAT 96
[2023-05-27 06:42] LABS: BLOOD UREA NITROGEN 15 MG/DL (9-23); CALCIUM LEVEL 8.4 MG/DL (8.5-10.1); CARBON DIOXIDE LEVEL 34 MMOL/L (20-31); CHLORIDE LEVEL 103 MMOL/L (98-107); CREATININE FOR GFR 0.61 MG/DL (0.70-1.30); GLOMERULAR FILTRATION RATE > 60.0 (>56); GLUCOSE, FASTING 93 MG/DL (60-100); POTASSIUM SERUM 4.6 MMOL/L (3.5-5.1); SODIUM LEVEL 139 MMOL/L (136-145)
[2023-05-27] MEDS: BUDESONIDE 0.25 MG/2 ML INHALATION SUSPENSION INH SCH ×2 (07:16→20:58)
[2023-05-27] MEDS: ENOXAPARIN 40MG/0.4ML SYRINGE (J1650 PER 10MG) SC SCH (07:49)
[2023-05-27] MEDS: METOPROLOL TART 50 MG TAB PO SCH ×2 (08:55→21:32)
[2023-05-27] MEDS ORDERED: OMEPRAZOLE 20MG CAP PO SCH (09:00)
[2023-05-27] MEDS ORDERED: PANTOPRAZOLE 40MG VIAL IV SCH (09:00)
[2023-05-27] MEDS: FORMOTEROL FUMARATE 20 MCG/2 ML INHALATION SOLUTION (PERFOROMIST) INH SCH ×2 (10:43→20:58)
[2023-05-27 13:28] VITALS: BP 118/69; TEMP 97.9; O2SAT 95
[2023-05-27] MEDS: metroNIDAZOLE (FLAGYL) 500MG TABLET PO SCH ×2 (14:35→21:32)
[2023-05-27] MEDS: CIPROFLOXACIN 500MG TABLET PO SCH (17:53)
[2023-05-27 21:01] VITALS: BP 122/71; TEMP 98.1; O2SAT 95; O2SAT 98
[2023-05-27] MEDS: ROSUVASTATIN 10 MG TAB (CRESTOR) PO SCH (21:32)
[2023-05-28] MEDS: IPRATROPIUM 0.5MG/ALBUTEROL 2.5MG INH SOL UD 3ML (DUONEB) NEB SCH ×7 (00:08→23:07)
[2023-05-28 06:00] VITALS: BP 117/73; TEMP 98.1; O2SAT 94
[2023-05-28] MEDS: metroNIDAZOLE (FLAGYL) 500MG TABLET PO SCH ×3 (06:09→20:57)
[2023-05-28] MEDS: CIPROFLOXACIN 500MG TABLET PO SCH ×2 (06:09→18:29)
[2023-05-28] MEDS: LEVOTHYROXINE 25MCG TABLET (0.025MG) PO SCH (06:09)
[2023-05-28 06:25] LABS: BASO % 0.1 % (0.0-1.0); EOS # 0.1 10^3/uL (0.0-0.5); EOS % 1.4 % (0.0-3.0); HEMATOCRIT 35.5 % (42.0-52.0); HEMOGLOBIN 10.7 g/dl (13.5-17.5); LYMPH # 1.8 10^3/uL (1.5-5.0); LYMPH % 20.5 % (24.0-44.0); MEAN CORPUSCULAR HEMOGLOBIN 28.4 pg (27.0-33.0); MEAN CORPUSCULAR HGB CONC 30.1 g/dl (32.0-36.5); MEAN CORPUSCULAR VOLUME 94.2 fl (80.0-96.0); MONO % 11.3 % (2.0-8.0); NEUTROPHILS # 5.8 10^3/uL (1.5-8.5); NEUTROPHILS % 65.8 % (36.0-66.0); PLATELET COUNT, AUTOMATED 254 10^3/uL (150-450); RED BLOOD COUNT 3.77 10^6/uL (4.30-6.10); WHITE BLOOD COUNT 8.9 10^3/uL (4.0-10.0)
[2023-05-28 06:50] LABS: BLOOD UREA NITROGEN 16 MG/DL (9-23); CALCIUM LEVEL 8.4 MG/DL (8.5-10.1); CARBON DIOXIDE LEVEL 36 MMOL/L (20-31); CHLORIDE LEVEL 102 MMOL/L (98-107); GLOMERULAR FILTRATION RATE > 60.0 (>56); GLUCOSE, FASTING 97 MG/DL (60-100); POTASSIUM SERUM 4.4 MMOL/L (3.5-5.1); SODIUM LEVEL 140 MMOL/L (136-145)
[2023-05-28] MEDS: BUDESONIDE 0.25 MG/2 ML INHALATION SUSPENSION INH SCH ×2 (07:37→19:22)
[2023-05-28] MEDS: FORMOTEROL FUMARATE 20 MCG/2 ML INHALATION SOLUTION (PERFOROMIST) INH SCH ×2 (07:37→19:21)
[2023-05-28] MEDS: ENOXAPARIN 40MG/0.4ML SYRINGE (J1650 PER 10MG) SC SCH (08:07)
[2023-05-28] MEDS: METOPROLOL TART 50 MG TAB PO SCH ×2 (08:08→20:58)
[2023-05-28] MEDS: PANTOPRAZOLE 40MG TAB (PROTONIX) PO SCH (08:08)
[2023-05-28 14:50] VITALS: BP 109/72; TEMP 98.4; O2SAT 93
[2023-05-28 20:33] VITALS: BP 107/66; TEMP 97.8; O2SAT 94
[2023-05-28] MEDS: ROSUVASTATIN 10 MG TAB (CRESTOR) PO SCH (20:57)
[2023-05-29] MEDS: IPRATROPIUM 0.5MG/ALBUTEROL 2.5MG INH SOL UD 3ML (DUONEB) NEB SCH ×3 (03:12→11:31)
[2023-05-29] MEDS: metroNIDAZOLE (FLAGYL) 500MG TABLET PO SCH ×2 (05:44→13:25)
[2023-05-29] MEDS: LEVOTHYROXINE 25MCG TABLET (0.025MG) PO SCH (05:44)
[2023-05-29] MEDS: CIPROFLOXACIN 500MG TABLET PO SCH (05:44)
[2023-05-29 06:23] LABS: BASO % 0.2 % (0.0-1.0); EOS # 0.2 10^3/uL (0.0-0.5); EOS % 1.8 % (0.0-3.0); HEMATOCRIT 34.3 % (42.0-52.0); HEMOGLOBIN 10.4 g/dl (13.5-17.5); LYMPH # 2.2 10^3/uL (1.5-5.0); LYMPH % 26.4 % (24.0-44.0); MEAN CORPUSCULAR HEMOGLOBIN 28.7 pg (27.0-33.0); MEAN CORPUSCULAR HGB CONC 30.3 g/dl (32.0-36.5); MEAN CORPUSCULAR VOLUME 94.8 fl (80.0-96.0); MONO # 0.8 10^3/uL (0.0-0.8); MONO % 9.2 % (2.0-8.0); NEUTROPHILS # 5.1 10^3/uL (1.5-8.5); NEUTROPHILS % 61.6 % (36.0-66.0); PLATELET COUNT, AUTOMATED 229 10^3/uL (150-450); RED BLOOD COUNT 3.62 10^6/uL (4.30-6.10); WHITE BLOOD COUNT 8.3 10^3/uL (4.0-10.0)
[2023-05-29 06:45] VITALS: BP 123/79; TEMP 97.2; O2SAT 94
[2023-05-29 06:48] LABS: BLOOD UREA NITROGEN 12 MG/DL (9-23); CALCIUM LEVEL 8.2 MG/DL (8.5-10.1); CARBON DIOXIDE LEVEL 34 MMOL/L (20-31); CHLORIDE LEVEL 105 MMOL/L (98-107); CREATININE FOR GFR 0.67 MG/DL (0.70-1.30); GLOMERULAR FILTRATION RATE > 60.0 (>56); GLUCOSE, FASTING 104 MG/DL (60-100); SODIUM LEVEL 140 MMOL/L (136-145)
[2023-05-29] MEDS: BUDESONIDE 0.25 MG/2 ML INHALATION SUSPENSION INH SCH (07:34)
[2023-05-29] MEDS: FORMOTEROL FUMARATE 20 MCG/2 ML INHALATION SOLUTION (PERFOROMIST) INH SCH (07:34)
[2023-05-29 08:58] VITALS: BP 123/79
[2023-05-29] MEDS: METOPROLOL TART 50 MG TAB PO SCH (08:58)
[2023-05-29] MEDS: PANTOPRAZOLE 40MG TAB (PROTONIX) PO SCH (08:58)
[2023-05-29] MEDS: ENOXAPARIN 40MG/0.4ML SYRINGE (J1650 PER 10MG) SC SCH (08:59)
[2023-05-29 12:09] LABS: HEPARIN INDUCED PLATELET ABY 0.114 OD (0.000-0.400); UNFRACTIONATED HEPARIN HI DOSE <1 % (0-20); UNFRACTIONATED HEPARIN LOW DOS <1 % (0-20)
[2023-05-29] MEDS ORDERED: IPRATROPIUM 0.5MG/ALBUTEROL 2.5MG INH SOL UD 3ML (DUONEB) NEB PRN (13:15)
[2023-05-29] MEDS ORDERED: PANT40TA29 PO (13:36)
[2023-05-29] MEDS ORDERED: METR-265 PO (13:36)
[2023-05-29] MEDS ORDERED: LEVO25TA5 PO (13:36)
[2023-05-29] MEDS ORDERED: CIPR500T39 PO (13:36)
== END 2023-05-29 14:55 | disposition home or self-care (01) | DRG 208 ==
LOC: EDBD 11:02 → M ED 11:02 → M ED INP 14:55 → M ICU 17:56 → M MS5PR 05-26 14:13
PROVIDERS: ADMIT Student in an Organized Health Care Education/Training Program; ATTEND Student in an Organized Health Care Education/Training Program
PROC: 5A1945Z Respiratory Ventilation, 24-96 Consecutive Hours (ICD-10-PCS; principal; 2023-05-16)
PROC: 0BH17EZ Insertion of Endotracheal Airway into Trachea, Via Natural or Artificial Opening (ICD-10-PCS; 2023-05-16)
PROC: 0B9M8ZX Drainage of Bilateral Lungs, Via Natural or Artificial Opening Endoscopic, Diagnostic (ICD-10-PCS; 2023-05-16)
PROC: 30233K1 Transfusion of Nonautologous Frozen Plasma into Peripheral Vein, Percutaneous Approach (ICD-10-PCS; 2023-05-23)
DX: J44.1 Chronic obstructive pulmonary disease with (acute) exacerbation (principal); G93.41 Metabolic encephalopathy; J96.21 Acute and chronic respiratory failure with hypoxia; J96.02 Acute respiratory failure with hypercapnia; N17.9 Acute kidney failure, unspecified; E87.0 Hyperosmolality and hypernatremia; G72.81 Critical illness myopathy; K57.20 Diverticulitis of large intestine with perforation and abscess without bleeding; I12.9 Hypertensive chronic kidney disease with stage 1 through stage 4 chronic kidney disease, or unspecified chronic kidney disease; D69.6 Thrombocytopenia, unspecified; T38.0X5A Adverse effect of glucocorticoids and synthetic analogues, initial encounter; K21.9 Gastro-esophageal reflux disease without esophagitis; E78.00 Pure hypercholesterolemia, unspecified; E87.6 Hypokalemia; E03.9 Hypothyroidism, unspecified; F39 Unspecified mood [affective] disorder; E83.42 Hypomagnesemia; E87.5 Hyperkalemia; N18.30 Chronic kidney disease, stage 3 unspecified; Z79.899 Other long term (current) drug therapy; Z91.040 Latex allergy status; Z20.822 Contact with and (suspected) exposure to COVID-19; Z99.81 Dependence on supplemental oxygen; Z87.891 Personal history of nicotine dependence; Z79.890 Hormone replacement therapy

== ENCOUNTER → 2024-03-14 | Outpatient (CLI) | payer MEDICARE, MEDICAID ==
[~2024-03-14] MED LIST changes: +BUDE10.7 INH; +BUDE90AE INH; +CIPR500T39 PO; +DOXY-440 PO; -DOXY-444 PO; +LEVO25TA5 PO; +METR-265 PO; +OMEP-173 PO; +PANT40TA29 PO; -PULM90IN INH; -ROSU20TA61 PO; +ROSU20TA86 PO; +VERA240T65 PO
== END ==
LOC: M RAD 16:54
PROVIDERS: ATTEND Internal Medicine Pulmonary Disease
DX: Z12.2 Encounter for screening for malignant neoplasm of respiratory organs (principal); Z87.891 Personal history of nicotine dependence; N20.0 Calculus of kidney

== ENCOUNTER → 2024-04-25 | Outpatient (REF) | payer MEDICARE, MEDICAID ==
[2024-04-25 17:57] LABS: BASO # 0.1 10^3/uL (0.0-0.2); BASO % 1.2 % (0.0-1.0); EOS # 0.3 10^3/uL (0.0-0.5); EOS % 2.1 % (0.0-3.0); HEMATOCRIT 45.7 % (42.0-52.0); HEMOGLOBIN 14.6 g/dl (13.5-17.5); LYMPH # 4.4 10^3/uL (1.5-5.0); LYMPH % 36.8 % (24.0-44.0); MEAN CORPUSCULAR HEMOGLOBIN 29.1 pg (27.0-33.0); MEAN CORPUSCULAR HGB CONC 31.9 g/dl (32.0-36.5); MEAN CORPUSCULAR VOLUME 91.2 fl (80.0-96.0); MONO % 8.1 % (2.0-8.0); NEUTROPHILS % 50.4 % (36.0-66.0); PLATELET COUNT, AUTOMATED 233 10^3/uL (150-450); RED BLOOD COUNT 5.01 10^6/uL (4.30-6.10)
[2024-04-25 18:21] LABS: ALBUMIN 3.9 G/DL (3.2-5.2); ALKALINE PHOSPHATASE 98 U/L (40-129); ALT/SGPT 14 U/L (7.0-40); AST/SGOT 12 U/L (<34); BILIRUBIN,TOTAL 0.5 MG/DL (0.3-1.2); BLOOD UREA NITROGEN 13 MG/DL (9-23); CALCIUM LEVEL 9.9 MG/DL (8.5-10.1); CARBON DIOXIDE LEVEL 34 MMOL/L (20-31); CHLORIDE LEVEL 99 MMOL/L (98-107); CHOLESTEROL LEVEL 129 MG/DL (<200); CHOLESTEROL RISK RATIO 2.88 (<5); CREATININE FOR GFR 1.01 MG/DL (0.70-1.30); GLOMERULAR FILTRATION RATE > 60.0 (>56); GLUCOSE, FASTING 97 MG/DL (60-100); HDL CHOLESTEROL 44.7 MG/DL (>40); LDL CHOLESTEROL 60.9 MG/DL (<100); NON-HDL-C 84.3 MG/DL; POTASSIUM SERUM 4.7 MMOL/L (3.5-5.1); SODIUM LEVEL 141 MMOL/L (136-145); TOTAL PROTEIN 7.3 G/DL (5.7-8.2); TRIGLYCERIDES LEVEL 117 MG/DL (<150)
[2024-04-25 18:23] LABS: FREE T4 1.16 NG/DL (0.89-1.76); THYROID STIMULATING HORMONE 1.565 uIU/ML (0.55-4.78)
[2024-04-25 19:14] LABS: HEMOGLOBIN A1c 5.2 % (4.0-6.0)
== END ==
LOC: M LABDRWAD 16:59
PROVIDERS: ATTEND Nurse Practitioner Adult Health
DX: I10 Essential (primary) hypertension (principal); K21.9 Gastro-esophageal reflux disease without esophagitis; Z79.899 Other long term (current) drug therapy; G89.29 Other chronic pain; F41.9 Anxiety disorder, unspecified; R53.83 Other fatigue; E03.9 Hypothyroidism, unspecified; E78.5 Hyperlipidemia, unspecified

== ENCOUNTER → 2025-03-06 | Outpatient (REF) | payer OTHER ==
[~2025-03-06] MED LIST changes: +HYDR12.510; -HYDR12CA
[2025-03-06 13:51] LABS: ESTIMATED AVERAGE GLUCOSE 108.0 MG/DL (60-110)
[2025-03-06 14:12] LABS: FREE T4 1.10 NG/DL (0.89-1.76)
[2025-03-06 14:14] LABS: ALT/SGPT 14 U/L (7.0-40); AST/SGOT 16 U/L (<34); CALCIUM LEVEL 9.3 MG/DL (8.5-10.1); CARBON DIOXIDE LEVEL 31 MMOL/L (20-31); CHLORIDE LEVEL 99 MMOL/L (98-107); CHOLESTEROL LEVEL 106 MG/DL (<200); CHOLESTEROL RISK RATIO 2.69 (<5); CREATININE FOR GFR 0.91 MG/DL (0.70-1.30); GLOMERULAR FILTRATION RATE > 90.0 (>56); LDL CHOLESTEROL 50.6 MG/DL (<100); NON-HDL-C 66.6 MG/DL; POTASSIUM SERUM 4.5 MMOL/L (3.5-5.1); SODIUM LEVEL 141 MMOL/L (136-145); TRIGLYCERIDES LEVEL 80 MG/DL (<150)
== END ==
LOC: M LABDRWAD 12:42
DX: E78.5 Hyperlipidemia, unspecified (principal); R53.83 Other fatigue; I10 Essential (primary) hypertension

== ENCOUNTER 2025-03-14 02:15 | Inpatient (IN) | payer OTHER ==
[2025-03-14] VITALS (8 sets, daily range): BP systolic 111–144; BP diastolic 64–98; TEMP 98.3–98.8; O2SAT 88–92
[~2025-03-14] VITALS: Ht 160 cm; Wt 80.5 kg
[2025-03-14 02:51] LABS: VENOUS BASE EXCESS 3.9 (-2.0-2.0); VENOUS HCO3 30.5 MMOL/L (23.0-27.0); VENOUS O2 SATURATION 99.2 % (60.0-80.0); VENOUS PARTIAL PRESSURE CO2 53.1 mmHg (38.0-50.0); VENOUS PARTIAL PRESSURE O2 152.5 mmHg (30.0-50.0); VENOUS PH 7.377 UNITS (7.330-7.430); VENOUS STANDARD HCO3 28.0 MMOL/L; VENOUS TOTAL CO2 32.1 MMOL/L (24.0-28.0)
[2025-03-14 03:01] LABS: PLATELET COUNT, AUTOMATED 290 10^3/uL (150-450)
[2025-03-14] MEDS: IPRATROPIUM 0.5 MG/ALBUTEROL 2.5 MG INH SOL UD 3 ML NEB ONE (03:10)
[2025-03-14 03:22] LABS: ALT/SGPT 14 U/L (7.0-40); AST/SGOT 16 U/L (<34); CALCIUM LEVEL 8.7 MG/DL (8.5-10.1); CARBON DIOXIDE LEVEL 32 MMOL/L (20-31); CHLORIDE LEVEL 96 MMOL/L (98-107); CREATININE FOR GFR 0.84 MG/DL (0.70-1.30); GLOMERULAR FILTRATION RATE > 90.0 (>56); POTASSIUM SERUM 4.4 MMOL/L (3.5-5.1); SODIUM LEVEL 140 MMOL/L (136-145)
[2025-03-14 03:51] LABS: ATYPICAL LYMPH 1 % (0-5); PROMYELOCYTES 1 % (0-0)
[2025-03-14 03:52] LABS: LYMPHOCYTES 8 % (16-44); METAMYELOCYTES 17 % (0-0); MONOCYTES 8 % (0-5); MYELOCYTES 15 % (0-0); NEUTROPHILS 40 % (28-66)
[2025-03-14 03:53] LABS: PLATELET ESTIMATE NORMAL (NORMAL)
[2025-03-14 05:29] LABS: CK-MB VALUE MASS 5.7 NG/ML (<3.6)
[2025-03-14 05:30] LABS: CPK CREATINE PHOSPHOKINASE 75 U/L (46-171); MB/CK RELATIVE INDEX 7.60 (< OR =4)
[2025-03-14] MEDS ORDERED: PRED10TA2 PO (07:50)
[2025-03-14] MEDS ORDERED: SYNT25TA PO (07:50)
[2025-03-14] MEDS ORDERED: PANT40TA29 PO (07:50)
[2025-03-14] MEDS ORDERED: LOSA100T46 PO (07:50)
[2025-03-14] MEDS ORDERED: HOME MED LIST COMPLETE! XX SCH (07:50)
[2025-03-14] MEDS: NS (Normal Saline) 0.9% 1,000 ML IV ONE (08:28)
[2025-03-14] MEDS: PIPERACILLIN/TAZOBACTAM SOD 4.5 GM in DEXTROSE 5% (D5W) ADV/MINI-BAG 50 ML IV ONE (08:50)
[2025-03-14] MEDS: GASTROGRAFIN SOLUTION 30ML PO SCH (08:51)
[2025-03-14] MEDS ORDERED: ISOVUE-370 76% 100 ML VIAL As Ordered ONE (10:12)
[2025-03-14] MEDS: LR 1,000 ML IV SCH (13:43)
[2025-03-14] MEDS: IPRATROPIUM 0.5 MG/ALBUTEROL 2.5 MG INH SOL UD 3 ML NEB SCH (15:09)
[2025-03-14] MEDS: PIPERACILLIN/TAZOBACTAM SOD 4.5 GM in DEXTROSE 5% (D5W) ADV/MINI-BAG 50 ML IV SCH ×2 (15:22→21:25)
[2025-03-14] MEDS: FAMOTIDINE IV BAG 20 MG in IV 1 EA IV SCH (15:48)
[2025-03-14] MEDS ORDERED: DOXYCYCLINE HYCLATE 100 MG in DEXTROSE 5% (D5W) MINI-BAG PLU 100 ML IV SCH (17:00)
[2025-03-14] MEDS: DOXYCYCLINE HYCLATE 100 MG in DEXTROSE 5% (D5W) MINI-BAG PLU 100 ML IV SCH (20:39)
[2025-03-15] VITALS (23 sets, daily range): BP systolic 101–166; BP diastolic 57–82; TEMP 97–101.2; O2SAT 88–98
[2025-03-15] MEDS: IPRATROPIUM 0.5 MG/ALBUTEROL 2.5 MG INH SOL UD 3 ML NEB SCH
[2025-03-15 04:56] LABS: PLATELET COUNT, AUTOMATED 202 10^3/uL (150-450)
[2025-03-15 05:29] LABS: PLATELET ESTIMATE NORMAL (NORMAL)
[2025-03-15 05:35] LABS: ATYPICAL LYMPH 1 % (0-5); LYMPHOCYTES 11 % (16-44); METAMYELOCYTES 9 % (0-0); MONOCYTES 6 % (0-5); MYELOCYTES 7 % (0-0); NEUTROPHILS 33 % (28-66)
[2025-03-15 05:45] LABS: ALT/SGPT 12 U/L (7.0-40); AST/SGOT 16 U/L (<34); CALCIUM LEVEL 8.1 MG/DL (8.5-10.1); CARBON DIOXIDE LEVEL 36 MMOL/L (20-31); CHLORIDE LEVEL 102 MMOL/L (98-107); CREATININE FOR GFR 0.89 MG/DL (0.70-1.30); GLOMERULAR FILTRATION RATE > 90.0 (>56); MAGNESIUM LEVEL 2.5 MG/DL (1.8-2.4); POTASSIUM SERUM 4.4 MMOL/L (3.5-5.1); SODIUM LEVEL 145 MMOL/L (136-145)
[2025-03-15 06:18] LABS: ABG BASE EXCESS 3.2 (-2.0-2.0); ABG HCO3 31.6 MMOL/L (22.0-26.0); ABG O2 SATURATION 95.7 % (95.0-99.0); ABG PARTIAL PRESSURE O2 80.1 mmHg (75.0-100.0); ABG STANDARD HCO3 27.3 MMOL/L. (22.0-26.0); ABG TOTAL CO2 33.7 MMOL/L (22.0-29.0); ABG pH (ARTERIAL) 7.286 UNITS (7.350-7.450)
[2025-03-15 06:22] LABS: ABG PARTIAL PRESSURE CO2 67.9 mmHg (35.0-45.0)
[2025-03-15] MEDS ORDERED: VERAPAMIL 40 MG TAB PO SCH (09:00)
[2025-03-15] MEDS: ENOXAPARIN 40 MG/0.4 ML SYRINGE (J1650 PER 10MG) SC SCH (09:07)
[2025-03-15] MEDS: VERAPAMIL 120MG SR TAB PO SCH (09:08)
[2025-03-15] MEDS ORDERED: VANCOMYCIN HCL IV SCH (16:10)
[2025-03-15] MEDS ORDERED: FLUID PLACE HOLDER IV SCH (16:10)
[2025-03-15 16:17] LABS: ABG BASE EXCESS 6.0 (-2.0-2.0); ABG HCO3 33.0 MMOL/L (22.0-26.0); ABG O2 SATURATION 95.6 % (95.0-99.0); ABG PARTIAL PRESSURE CO2 59.0 mmHg (35.0-45.0); ABG PARTIAL PRESSURE O2 79.5 mmHg (75.0-100.0); ABG STANDARD HCO3 29.8 MMOL/L. (22.0-26.0); ABG TOTAL CO2 34.8 MMOL/L (22.0-29.0); ABG pH (ARTERIAL) 7.366 UNITS (7.350-7.450)
[2025-03-15] MEDS: ACETAMINOPHEN *IV* 1,000 MG in IV 1 EA IV ONE (16:48)
[2025-03-15] MEDS: VANCOMYCIN HCL 2,000 MG, VIAL MATE ADAPTER 1 EACH in NS 500 ML IV ONE (17:27)
[2025-03-15] MEDS: FLUCONAZOLE 400 MG in IV 1 EA IV ONE (20:56)
[2025-03-16] VITALS (15 sets, daily range): BP systolic 118–161; BP diastolic 61–74; TEMP 98.1–99.3; O2SAT 88–98
[2025-03-16] MEDS: VANCOMYCIN HCL 1,250 MG, VIAL MATE ADAPTER 1 EACH in NS 250 ML IV SCH (02:40)
[2025-03-16 06:54] LABS: PLATELET COUNT, AUTOMATED 195 10^3/uL (150-450)
[2025-03-16 07:23] LABS: CK-MB VALUE MASS 2.3 NG/ML (<3.6)
[2025-03-16 07:25] LABS: ALT/SGPT 16.0 U/L (7.0-40); AST/SGOT 26.0 U/L (<34); CALCIUM LEVEL 8.5 MG/DL (8.5-10.1); CARBON DIOXIDE LEVEL 34.0 MMOL/L (20-31); CHLORIDE LEVEL 104.0 MMOL/L (98-107); CPK CREATINE PHOSPHOKINASE 78.0 U/L (46-171); CREATININE FOR GFR 1.02 MG/DL (0.70-1.30); GLOMERULAR FILTRATION RATE 87.9 (>56); MAGNESIUM LEVEL 2.5 MG/DL (1.8-2.4); MB/CK RELATIVE INDEX 2.94 (< OR =4); PHOSPHORUS LEVEL 3.1 MG/DL (2.5-4.9); POTASSIUM SERUM 4.0 MMOL/L (3.5-5.1); SODIUM LEVEL 147.0 MMOL/L (136-145)
[2025-03-16 07:30] LABS: ATYPICAL LYMPH 5 % (0-5); LYMPHOCYTES 6 % (16-44); MONOCYTES 10 % (0-5); MYELOCYTES 4 % (0-0); NEUTROPHILS 65 % (28-66); PLATELET ESTIMATE NORMAL (NORMAL)
[2025-03-16] MEDS: LEVOTHYROXINE 25 MCG TABLET (0.025MG) PO SCH (09:41)
[2025-03-16] MEDS: SYMBICORT 160/4.5MCG INHALER 6GM INH SCH (10:05)
[2025-03-16] MEDS: TIOTROPIUM BROM 2.5MCG/ACTUATION 4GM INH INH SCH (10:05)
[2025-03-16] MEDS: IPRATROPIUM 0.5 MG/ALBUTEROL 2.5 MG INH SOL UD 3 ML NEB SCH (11:14)
[2025-03-16] MEDS: PANTOPRAZOLE 40MG TAB PO SCH (20:09)
[2025-03-17] VITALS (8 sets, daily range): BP systolic 119–138; BP diastolic 65–72; TEMP 97.6–98.5; O2SAT 90–95
[2025-03-17 04:24] LABS: BASO # 0.1 10^3/uL (0.0-0.2); BASO % 0.8 % (0.0-1.0); EOS # 0.0 10^3/uL (0.0-0.5); EOS % 0.0 % (0.0-3.0); LYMPH # 1.5 10^3/uL (1.5-5.0); LYMPH % 10.5 % (24.0-44.0); MONO # 0.6 10^3/uL (0.0-0.8); MONO % 4.2 % (2.0-8.0); NEUTROPHILS # 10.6 10^3/uL (1.5-8.5); NEUTROPHILS % 75.0 % (36.0-66.0); PLATELET COUNT, AUTOMATED 185 10^3/uL (150-450)
[2025-03-17 04:46] LABS: ALT/SGPT 17.0 U/L (7.0-40); AST/SGOT 29.0 U/L (<34); CALCIUM LEVEL 8.4 MG/DL (8.5-10.1); CARBON DIOXIDE LEVEL 37.0 MMOL/L (20-31); CHLORIDE LEVEL 103.0 MMOL/L (98-107); CREATININE FOR GFR 1.07 MG/DL (0.70-1.30); GLOMERULAR FILTRATION RATE 83.0 (>56); MAGNESIUM LEVEL 2.5 MG/DL (1.8-2.4); PHOSPHORUS LEVEL 3.7 MG/DL (2.5-4.9); POTASSIUM SERUM 4.0 MMOL/L (3.5-5.1); SODIUM LEVEL 150.0 MMOL/L (136-145)
[2025-03-17] MEDS: D5W 1,000 ML IV ONE (08:13)
[2025-03-17] MEDS: DOXYCYCLINE HYCLATE 100 MG TABLET PO SCH (20:19)
[2025-03-18] VITALS (11 sets, daily range): BP systolic 121–146; BP diastolic 65–79; TEMP 97.2–98.6; O2SAT 91–94
[2025-03-18 04:23] LABS: PLATELET COUNT, AUTOMATED 151 10^3/uL (150-450)
[2025-03-18 04:41] LABS: CALCIUM LEVEL 8.3 MG/DL (8.5-10.1); CARBON DIOXIDE LEVEL 38 MMOL/L (20-31); CHLORIDE LEVEL 102 MMOL/L (98-107); CREATININE FOR GFR 0.97 MG/DL (0.70-1.30); GLOMERULAR FILTRATION RATE > 90.0 (>56); POTASSIUM SERUM 4.1 MMOL/L (3.5-5.1); SODIUM LEVEL 147 MMOL/L (136-145)
[2025-03-18 05:32] LABS: ABG BASE EXCESS 10.7 (-2.0-2.0); ABG HCO3 37.9 MMOL/L (22.0-26.0); ABG O2 SATURATION 94.5 % (95.0-99.0); ABG PARTIAL PRESSURE O2 75.8 mmHg (75.0-100.0); ABG STANDARD HCO3 34.4 MMOL/L. (22.0-26.0); ABG TOTAL CO2 39.9 MMOL/L (22.0-29.0); ABG pH (ARTERIAL) 7.390 UNITS (7.350-7.450)
[2025-03-18 05:34] LABS: ABG PARTIAL PRESSURE CO2 64.1 mmHg (35.0-45.0)
[2025-03-18] MEDS: D5W 1,000 ML IV SCH (08:57)
[2025-03-18] MEDS ORDERED: ALBUTEROL SULFATE 2.5 MG/0.5 ML INH CONCENTRATE NEB SOLN NEB PRN (11:35)
[2025-03-19] VITALS (7 sets, daily range): BP systolic 125–159; BP diastolic 64–94; TEMP 97.6–98.7; O2SAT 92–97
[2025-03-19 06:01] LABS: PLATELET COUNT, AUTOMATED 125 10^3/uL (150-450)
[2025-03-19 06:31] LABS: CALCIUM LEVEL 8.4 MG/DL (8.5-10.1); CARBON DIOXIDE LEVEL 38 MMOL/L (20-31); CHLORIDE LEVEL 100 MMOL/L (98-107); CREATININE FOR GFR 0.97 MG/DL (0.70-1.30); GLOMERULAR FILTRATION RATE > 90.0 (>56); POTASSIUM SERUM 4.0 MMOL/L (3.5-5.1); SODIUM LEVEL 146 MMOL/L (136-145)
[2025-03-19] MEDS: PNEUMOC 21-VAL CONJ-DIP CRM/PF 0.5 ML SYRINGE IM.IMMUN ONE (16:29)
[2025-03-19] MEDS: FLUZONE VACCINE TRI PF(25-26) 0.5ML SYRINGE IM.IMMUN ONE (16:30)
[2025-03-20 03:36] VITALS: BP 131/87; TEMP 97.5; O2SAT 91
[2025-03-20 06:31] LABS: PLATELET COUNT, AUTOMATED 110 10^3/uL (150-450)
[2025-03-20 06:53] LABS: CALCIUM LEVEL 8.3 MG/DL (8.5-10.1); CARBON DIOXIDE LEVEL 39 MMOL/L (20-31); CHLORIDE LEVEL 101 MMOL/L (98-107); CREATININE FOR GFR 0.86 MG/DL (0.70-1.30); GLOMERULAR FILTRATION RATE > 90.0 (>56); POTASSIUM SERUM 4.3 MMOL/L (3.5-5.1); SODIUM LEVEL 147 MMOL/L (136-145)
[2025-03-20 07:34] VITALS: BP 141/83; TEMP 97.5; O2SAT 95
[2025-03-20 08:27] VITALS: BP 141/83
[2025-03-20] MEDS: predniSONE 20 MG TAB PO SCH (08:27)
[2025-03-20 12:26] VITALS: BP 134/78; TEMP 97.7; O2SAT 96
[2025-03-20] MEDS ORDERED: PRED10TA2 PO (14:33)
[2025-03-20] MEDS ORDERED: LEVO75TAB PO (14:33)
[2025-03-20] MEDS ORDERED: PANT40TA29 PO (14:33)
[2025-03-20] MEDS ORDERED: METR-265 PO (14:33)
[2025-03-20 16:38] VITALS: BP 146/70; TEMP 96.5; O2SAT 98
== END 2025-03-20 16:30 | disposition home health service (06) | DRG 720 ==
LOC: M ED 02:15 → EDBEDREQSVC 11:12 → M ED INP 12:43 → M ICU 14:44 → M PCU 03-18 05:09
PROVIDERS: ADMIT Internal Medicine Critical Care Medicine; ATTEND Student in an Organized Health Care Education/Training Program
DX: A41.9 Sepsis, unspecified organism (principal); J96.21 Acute and chronic respiratory failure with hypoxia; J18.9 Pneumonia, unspecified organism; E87.0 Hyperosmolality and hypernatremia; K57.20 Diverticulitis of large intestine with perforation and abscess without bleeding; J44.0 Chronic obstructive pulmonary disease with (acute) lower respiratory infection; J96.22 Acute and chronic respiratory failure with hypercapnia; Z99.81 Dependence on supplemental oxygen; J44.1 Chronic obstructive pulmonary disease with (acute) exacerbation; I10 Essential (primary) hypertension; E78.5 Hyperlipidemia, unspecified; E03.9 Hypothyroidism, unspecified; Z91.040 Latex allergy status; K52.9 Noninfective gastroenteritis and colitis, unspecified; Z87.891 Personal history of nicotine dependence; Z79.51 Long term (current) use of inhaled steroids; Z79.52 Long term (current) use of systemic steroids; Z79.899 Other long term (current) drug therapy